=== PATIENT | male | born 1970 | race Caucasian/White ===

== ENCOUNTER 2021-05-21 15:54 | Emergency (ER) | payer OTHER, SELFPAY ==
--- NOTE | 2021-05-21 16:07 | ED.EAR ---
HPI - Ear Problem General Chief complaint: Ear Stated complaint: LT ear pain and trouble hearing Time Seen by Provider: 05/21/21 15:56 Source: patient Mode of arrival: ambulatory Limitations: no limitations History of Present Illness HPI Narrative: 50-year-old man comes in today complaining of left ear pain and loss of hearing for last 2 days. Patient states that he has had no injury. He uses Q-tips to clear his ear wax. He has had no dizziness, nausea, vomiting or fever. MD Complaint: ear pain and decreased hearing Location: left ear Duration: constant Severity: severe Relieving factors: nothing Exacerbating factors: other ( Swallowing) Discharge from ear: Reports no Associated symptoms ear: decreased hearing Treatment prior to arrival: attempt at ear wax removal and other ( hydrogen peroxide) Related Data Home Medications Medication Instructions Recorded Confirmed No Home Medications 05/21/21 05/21/21 Allergies Allergy/AdvReac Type Severity Reaction Status Date / Time Penicillins Allergy Severe Hives Verified 05/21/21 16:11 Review of Systems Review of Systems: All systems reviewed & are unremarkable except as noted in HPI and below Constitutional: Constitutional: Denies chills and Denies fever(s) Eyes: Eyes: Denies change in vision and Denies photophobia ENT: Denies nasal congestion and Denies sore throat Cardiovascular: Cardiovascular: Denies chest pain and Denies radiating jaw, neck or arm pain Respiratory: Respiratory: Denies cough and Denies dyspnea Gastrointestinal: Gastrointestinal: Denies nausea and Denies vomiting Integumentary/Breasts: Skin/Breast: Denies pruritus, Denies erythema and Denies rash Hematologic/Lymphatic: Hematologic/Lymphatic: Denies easy bleeding and Denies easy bruising [facility] Surgical History Surgical History (Updated 05/21/21 @ 16:11 by Scott Drummond MD) H/O cardiac radiofrequency ablation H/O foot surgery Social History Social History (Updated 05/21/21 @ 16:11 by Scott Drummond MD) Smoking status: Current every day smoker Alcohol intake: former Substance use: never Living arrangements: with family Exam Const: General: healthy appearing and alert Orientation/consciousness: patient oriented x3 Limitations: no limitations Other: [id number] acute distress. HENMT: Head: normal to inspection Ears: external ears normal and Abnormal EAC present cerumen impaction on the left Face and sinus: normal facial exam Mouth: Yes moist mucous membranes Throat: posterior oropharynx normal Eyes: Conjunctivae: conjunctivae normal Pupils: Equal, round and reactive pupils present EOM: EOMs intact bilaterally Resp: Effort & Inspection: normal respiratory effort and not labored Auscultation: clear to auscultation bilaterally, no rales, no rhonchi and no wheezes Cardio: Rate: regular rate Rhythm: regular rhythm Heart sounds: no murmurs Skin: General skin exam: normal color, no jaundice and no pallor Rashes: no rashes Neuro: General: patient oriented x3, moves all extremities, no focal motor deficits and CN's II-XI intact bilaterally Speech: normal speech Gait exam (Neuro): Normal gait present Extrem: General: normal to inspection and no clubbing, cyanosis or edema Psych: Appearance: grossly normal and well kempt Mental Status: mental status grossly normal Affect: normal affect Thought content: Yes Normal thought content present Course Vital Signs Vital signs: Vital Signs Temperature 35.7 C L 05/21/21 16:08 Pulse Rate 86 05/21/21 16:08 Respiratory Rate 16 05/21/21 16:08 Blood Pressure 186/101 H 05/21/21 16:08 Pulse Oximetry 96 05/21/21 16:08 Temperature 35.7 C L 05/21/21 16:08 Pulse Rate 86 05/21/21 16:08 Respiratory Rate 16 05/21/21 16:08 Blood Pressure 186/101 H 05/21/21 16:08 Pulse Oximetry 96 05/21/21 16:08 Medical Decision Making Vital Signs Vital Signs: Vital Signs Temperature 35.7 C L
[2021-05-21 16:08] VITALS: BP 186/101; PULSE 86; RESP 16; TEMP 35.7; O2SAT 96
[2021-05-21 16:57] VITALS: BP 176/112; PULSE 100; RESP 16; TEMP 36.4; O2SAT 96
--- NOTE | 2021-05-21 17:00 | PC.NURSE ---
rn irrigated bilateral ears with warm water per erp request. large amounts of earwax cleared from bilateral ear canals. tm is now visable in both ears. patient reports pain is elevated following irrigation. erp is notified to reassess patient's ears at this time.
== END 2021-05-21 17:01 | disposition home or self-care (01) ==
PROVIDERS: Emergency Provider Emergency Medicine
DX: H61.22 Impacted cerumen, left ear (principal)
CPT/HCPCS: 69209; 99282

== ENCOUNTER 2021-10-23 00:50 | Emergency (ER) | payer OTHER, SELFPAY ==
--- NOTE | ~2021-10-23 | XR_ITS ---
EXAMINATION: XR chest 1V portable DATE: 10/23/2021 01:25 INDICATION: Chest pain. TECHNIQUE: A single frontal view of the chest was obtained on 2 radiographs. COMPARISON: None. FINDINGS: A calcified right lung nodule is consistent with old granulomatous disease. There is blunti ng of left lateral costophrenic angle. There is mild atelectasis in left midlung zone. No pneumothora x. The heart size is normal. IMPRESSION: 1. Blunting of left lateral costophrenic angle, which may be scarring and/or a small left pleural eff usion. 2. Mild atelectasis in left midlung zone. Reviewed, dictated and finalized at location A. IMPRESSION: 1. Blunting of left lateral costophrenic angle, which may be scarring and/or a small left pleural effusion. 2. Mild atelectasis in left midlung zone.
--- NOTE | 2021-10-23 01:10 | ECG_ITS ---
Measurements Intervals [place] Rate: 103 P: 37 IN: 183 QRS: 33 QRSD: 90 T: 53 QT: 342 QTc: 448 Interpretive Statements SINUS TACHYCARDIA BORDERLINE R WAVE PROGRESSION, ANTERIOR LEADS BASELINE ARTIFACT- I, II, AVR, AVF BORDERLINE ECG Electronically Signed On 10-23-2021 6:33:59 CDT by Arthur Larsen D.O.
[2021-10-23 01:24] VITALS: BP 134/81; PULSE 98; RESP 21; TEMP 36.6; O2SAT 98
[2021-10-23 01:25] LABS: Basophils Absolute Auto 0.05 K/mm3 (0.00-0.10); Basophils Percent Auto 0.7 % (0.0-1.0); Eosinophils Absolute Auto 0.25 K/mm3 (0.02-0.50); Eosinophils Percent Auto 3.6 % (1.0-6.0); Hematocrit 45.3 % (40.0-54.0); Immature Granulocyte Absolute 0.03 K/mm3 (0.00-0.00); Immature Granulocyte Percent A 0.4 % (0.0-0.0); Lymphocytes Percent Auto 40.5 % (18.0-42.0); Mean Corpuscular HGB Conc 33.1 g/dL (32.0-36.0); Mean Corpuscular Hemoglobin 30.2 pg (27.0-31.0); Mean Corpuscular Volume 91.1 fL (78.0-102.0); Mean Platelet Volume 9.4 fl (8.7-11.0); Monocytes Absolute Auto 0.67 K/mm3 (0.10-0.90); Monocytes Percent Auto 9.7 % (2.0-11.0); Neutrophils Absolute Auto 3.1 K/mm3 (1.7-7.2); Neutrophils Percent Auto 45.1 % (50.0-70.0); Platelet Count Result 304 K/mm3 (150-420); Red Blood Count 4.97 M/mm3 (4.70-6.10); Red Cell Distribution Width 13.9 % (11.6-14.4); White Blood Count 6.9 K/mm3 (4.8-10.8)
[2021-10-23 01:43] LABS: Alanine Aminotransferase 88 U/L (16-63); Albumin Level 3.4 g/dL (3.4-5.0); Alkaline Phosphatase 75 U/L (46-116); Anion Gap 7 mmol/L (8-16); Aspartate Amino Transferase 80 U/L (15-37); Bilirubin,Total 0.6 mg/dL (0.00-1.00); Blood Urea Nitrogen 23 mg/dL (7-18); Calcium 9.1 mg/dL (8.5-10.1); Carbon Dioxide 30 mmol/L (21-32); Chloride 100 mmol/L (98-108); Estimated CRCL calculation 66 ml/min; Estimated Glomerular Filt Rate 42; Glucose 117 mg/dL (70-99); Osmolality Calculated 288 mOsm/kg (285-295); Potassium 3.9 mmol/L (3.5-5.1); Sodium 137 mmol/L (136-145); Total Protein 7.4 g/dL (6.4-8.2); Troponin I 15.9 ng/L (0.00-60.4)
[2021-10-23 01:46] LABS: Lactic Acid Reflex 0.8 mmol/L (0.4-2.0)
[2021-10-23] MEDS: SODIUM CHLORIDE 0.9% IV 1,000 ML 999 ML IV CONT (01:49)
[2021-10-23 02:23] VITALS: BP 133/78; PULSE 93; RESP 17; O2SAT 98
--- NOTE | 2021-10-23 02:28 | ED.GENADULT ---
[facility] - General Adult General Chief complaint: Unspecified Stated complaint: Body Aches Time Seen by Provider: 10/23/21 00:54 Source: patient and RN notes reviewed Mode of arrival: ambulatory Limitations: no limitations History of Present Illness complaint: mild persistent bodyaches Onset (ago): hour(s) (12) Radiation: non-radiation Severity: moderate Severity scale (1-10): 8 Quality: aching Relieving factors: none Exacerbating factors: none Associated symptoms: nausea/vomiting Treatments prior to arrival: none Related Data Allergies Allergy/AdvReac Type Severity Reaction Status Date / Time Penicillins Allergy Severe Hives Verified 10/23/21 00:55 Review of Systems Review of Systems: All systems reviewed & are unremarkable except as noted in HPI and below Constitutional: Constitutional: Reports no additional constitutional complaints Eyes: Eyes: Reports no additional eye complaints ENT: Reports system reviewed and no additional complaints, except as documented Cardiovascular: Cardiovascular: Reports no additional cardiovascular complaints Respiratory: Respiratory: Reports no additional respiratory complaints Gastrointestinal: Gastrointestinal: Reports no additional gastrointestinal complaints Musculoskeletal: Musculoskeletal: Reports no additional musculoskeletal complaints Integumentary/Breasts: Skin/Breast: Reports system reviewed and no additional complaints, except as docu Neurologic: Reports system reviewed and no additional complaints, except as documented Psychiatric: Psychiatric: Reports no additional psychiatric complaints Endocrine: Endocrine: Reports no additional endocrine complaints Hematologic/Lymphatic: Hematologic/Lymphatic: Reports no additional hematologic/lymphatic complaints Allergic/Immunologic: Allergic/Immunologic: Reports no additional allergic/immunologic complaints [facility] Past Medical History Medical History (Updated 11/12/21 @ 23:39 by Francoise Douglas MD) Heat cramp, initial encounter Muscle cramps Surgical History Surgical History H/O cardiac radiofrequency ablation H/O foot surgery Social History Social History Smoking status: Current every day smoker Alcohol intake: former Substance use: never Exam Const: General: healthy appearing and no acute distress Nutritional Appearance: well nourished Orientation/consciousness: patient oriented x3 Limitations: no limitations HENMT: Head: normal to inspection Ears: external ears normal, TM's normal bilaterally and EAC's normal General nose exam: Normal external nose present and Normal nares present Face and sinus: normal facial exam and sinuses nontender Mouth: Yes Normal oral and palatal mucosa present and Yes moist mucous membranes Teeth and gingiva: dentition normal Throat: posterior oropharynx normal Eyes: Conjunctivae: conjunctivae normal Pupils: Equal, round and reactive pupils present EOM: EOMs intact bilaterally Neck: Neck: normal visual inspection, no lymphadenopathy and no meningeal signs Chest: Chest palpation & inspection: normal inspection of the chest Resp: Effort & Inspection: normal respiratory effort Auscultation: clear to auscultation bilaterally Cardio: Rate: regular rate Rhythm: regular rhythm GI: GI Palp: Yes Soft to palpation and No Tenderness to palpation present (GI) Auscultation: normal bowel sounds : General: Yes bladder normal to palpation and Yes no CVA tenderness Back/Spine/Pelvis: Back: no CVA tenderness Skin: General skin exam: normal color Rashes: no rashes Wounds: no wounds Neuro: General: patient oriented x3, moves all extremities, no meningeal signs, no focal motor deficits and CN's II-XI intact bilaterally Cranial nerves: Yes Equal, round and reactive pupils present and Yes Nystagmus not present Speech: normal speech Gait exam (Neuro): Norm
[2021-10-23 02:46] VITALS: BP 133/90; PULSE 90; RESP 16; TEMP 36.2; O2SAT 98
== END 2021-10-23 02:48 | disposition home or self-care (01) ==
PROVIDERS: Emergency Provider Emergency Medicine; PCP Nurse Practitioner Family
DX: R25.2 Cramp and spasm (principal); T67.2XXA Heat cramp, initial encounter
CPT/HCPCS: 36415; 71045; 80053; 83605; 83735; 84484; 85025; 93005; 96360; 99284; J7030

== ENCOUNTER 2022-04-19 18:36 | Emergency (ER) | payer OTHER, SELFPAY ==
[2022-04-19 18:39] VITALS: BP 161/82; PULSE 118; RESP 16; TEMP 37.4; O2SAT 97
--- NOTE | 2022-04-19 18:58 | ED.URI ---
HPI - URI/Sore Throat General Chief Complaint: Ear Stated Complaint: ear, throat pain, fever Time Seen by Provider: 04/19/22 18:48 Source: patient and RN notes reviewed Mode of arrival: ambulatory Limitations: no limitations History of Present Illness MD elicited complaint: fever, cough, sore throat and nasal congestion Onset (ago): day(s) (3) Consistency: constant Severity: moderate Description of mucous: clear Able to tolerate fluids by mouth: Yes Exacerbating factors: other ( Coughing) Relieving factors: NSAID Associated symptoms: fever, chills, myalgias, headache, rhinorrhea, nasal congestion, sore throat, cough, vomiting and diarrhea Treatments prior to arrival: ibuprofen Related Data Allergies Allergy/AdvReac Type Severity Reaction Status Date / Time Penicillins Allergy Severe Hives Verified 04/19/22 18:43 Review of Systems Review of Systems: All systems reviewed & are unremarkable except as noted in HPI and below PMFSH Past Medical History Medical History (Updated 04/19/22 @ 20:05 by Gumaro Bal MD) Heat cramp, initial encounter Hypertension Muscle cramps Surgical History Surgical History (Updated 04/19/22 @ 19:02 by Gumaro Bal MD) H/O cardiac radiofrequency ablation H/O foot surgery Large bowel obstruction had surgical decompression Social History Social History Smoking status: Current every day smoker Alcohol intake: former Substance use: never Exam Const: General: healthy appearing, no acute distress and alert Nutritional Appearance: well nourished and obese morbidly obese Limitations: no limitations HENMT: Head: normal to inspection Ears: external ears normal and TM's normal bilaterally Face/Nose/Sinus: Normal external nose present Face and sinus: normal facial exam Mouth: Yes moist mucous membranes Throat: uvula midline and posterior oropharynx abnormal edema and erythema Eyes: Conjunctivae: conjunctivae normal Pupils: Equal, round and reactive pupils present EOM: EOMs intact bilaterally Neck: Neck: normal visual inspection and no lymphadenopathy Resp: Effort & Inspection: normal respiratory effort Auscultation: clear to auscultation bilaterally Cardio: Rate: tachycardic Rhythm: regular rhythm GI: GI Palp: Yes Soft to palpation and No Tenderness to palpation present (GI) Auscultation: normal bowel sounds Back/Spine/Pelvis: Cervical Spine: cervical ROM normal Thoracic/Lumbar Spine: thoraco-lumbar ROM normal Skin: General skin exam: normal color Rashes: no rashes Neuro: General: patient oriented x3, moves all extremities, no focal motor deficits and CN's II-XI intact bilaterally Speech: normal speech Gait exam (Neuro): Normal gait present Extrem: General: normal to inspection and no clubbing, cyanosis or edema Psych: Mental Status: mental status grossly normal Affect: normal affect Attitude: cooperative Course Vital Signs Vital signs: Vital Signs Temperature 37.4 C 04/19/22 18:39 Pulse Rate 118 H 04/19/22 18:39 Respiratory Rate 16 04/19/22 18:39 Blood Pressure 161/82 H 04/19/22 18:39 Pulse Oximetry 97 04/19/22 18:39 Oxygen Delivery Room Air 04/19/22 18:39 Temperature 36.6 C 04/19/22 20:07 Pulse Rate 98 04/19/22 20:07 Respiratory Rate 20 04/19/22 20:07 Blood Pressure 138/90 04/19/22 20:07 Pulse Oximetry 95 04/19/22 20:07 Oxygen Delivery Room Air 04/19/22 20:07 MDM - URI/Sore Throat Differential Diagnosis Differential diagnosis: Likely upper respiratory infection, sinusitis, viral infection, bronchitis, influenza, pharyngitis and other (COVID) Lab Data Attestation: I reviewed the patient's lab results. Labs: Lab Results 04/19/22 04/19/22 Range/Units 18:43 18:43 Influenza A (RT-PCR) Negative (Negative) Influenza B (RT-PCR) Negative (Negative) SARS-CoV-2 RNA (RT-PCR) Negative (Negative) Group A Strep (PCR) Not detected (Ne
[2022-04-19 19:30] VITALS: BP 140/90; PULSE 100; RESP 20; O2SAT 95
[2022-04-19 19:32] LABS: Strep Group A RT-PCR Not Detected (Negative)
[2022-04-19 19:39] LABS: Influenza A QL RT-PCR Negative (Negative); Influenza B QL RT-PCR Negative (Negative); SARS-CoV-2 RNA PCR Negative (Negative)
[2022-04-19 20:07] VITALS: BP 138/90; PULSE 98; RESP 20; TEMP 36.6; O2SAT 95
== END 2022-04-19 20:08 | disposition home or self-care (01) ==
PROVIDERS: Emergency Provider Emergency Medicine; PCP Nurse Practitioner Family
DX: J06.9 Acute upper respiratory infection, unspecified (principal); F17.200 Nicotine dependence, unspecified, uncomplicated; Z20.822 Contact with and (suspected) exposure to COVID-19
CPT/HCPCS: 87502; 87651; 99283; U0003; U0005

== ENCOUNTER 2022-11-07 11:47 | Outpatient (CLI) | payer BC, SELFPAY ==
[2022-11-07 12:14] LABS: Hemoglobin A1C 6.7 % (<5.7)
[2022-11-07 13:01] LABS: Prostate Specific Antigen 1.8 ng/mL (< OR = 4.0)
== END 2022-11-07 11:48 | disposition home or self-care (01) ==
LOC: CHSLAB 11:49
PROVIDERS: PCP Family Medicine; Visit Provider Family Medicine
DX: E11.9 Type 2 diabetes mellitus without complications (principal); R35.1 Nocturia
CPT/HCPCS: 36415; 83036; 84153; G0103

== ENCOUNTER 2022-12-02 18:01 | Emergency (ER) | payer BC, SELFPAY ==
[2022-12-02 18:01] VITALS: PULSE 98; RESP 98; TEMP 36.4; O2SAT 100
--- NOTE | 2022-12-02 18:07 | ED.GENADULT ---
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 He were care yesterday as well and were experiencing he weight. Today the heat index was 122?. He began having cramps this afternoon felt like he was lungs were cramping it could take a deep breath at times. Says all of his muscles are cramping. He says he has been drinking water but not using any other electrolyte replacement. complaint: Widespread muscle cramping Onset (ago): hour(s) (4-5) Severity: severe Quality: stabbing and aching Pain Consistency: intermittent Relieving factors: none Exacerbating factors: movement Associated symptoms: denies other symptoms Treatments prior to arrival: none Related Data Allergies Allergy/AdvReac Type Severity Reaction Status Date / Time Penicillins Allergy Severe Hives Verified 12/02/22 18:07 Review of Systems Review of Systems: All systems reviewed & are unremarkable except as noted in HPI and below Constitutional: Constitutional: Denies excessive sweating Cardiovascular: Cardiovascular: Denies chest pain Gastrointestinal: Gastrointestinal: Denies nausea and Denies vomiting PMFSH Past Medical History Medical History Heat cramp, initial encounter Hypertension Muscle cramps Surgical History Surgical History H/O cardiac radiofrequency ablation H/O foot surgery Large bowel obstruction had surgical decompression Social History Social History Smoking status: Current every day smoker Alcohol intake: former Substance use: never Living arrangements: with family Exam Const: General: no acute distress, alert and ill appearing acutely Nutritional Appearance: well nourished and obese Orientation/consciousness: patient oriented x3 Limitations: no limitations HENMT: Head: normal to inspection Ears: external ears normal Face/Nose/Sinus: Normal external nose present Face and sinus: normal facial exam Mouth: Yes moist mucous membranes Eyes: Conjunctivae: conjunctivae normal Pupils: Equal, round and reactive pupils present EOM: EOMs intact bilaterally Neck: Neck: normal visual inspection Resp: Effort & Inspection: normal respiratory effort Auscultation: clear to auscultation bilaterally Cardio: Rate: regular rate Rhythm: regular rhythm GI: GI Palp: Yes Soft to palpation and No Tenderness to palpation present (GI) Auscultation: normal bowel sounds Back/Spine/Pelvis: Cervical Spine: cervical ROM normal Thoracic/Lumbar Spine: thoraco-lumbar ROM normal Skin: General skin exam: normal color Rashes: no rashes Neuro: General: patient oriented x3, moves all extremities, no focal motor deficits and CN's II-XI intact bilaterally Speech: normal speech Gait exam (Neuro): Normal gait present Extrem: General: normal to inspection and no clubbing, cyanosis or edema Psych: Mental Status: mental status grossly normal Affect: Anxious affect present Attitude: cooperative Course Course Emergency Course: patient given 2 L normal saline and feels much better. He is advised to use electrolyte replacement when he is working out heat. Lactic acidosis is due to his heat exhaustion. Vital Signs Vital signs: Vital Signs Temperature 36.4 C 12/02/22 18:01 Pulse Rate 98 12/02/22 18:01 Respiratory Rate 98 H 12/02/22 18:01 Pulse Oximetry 100 12/02/22 18:01 Oxygen Delivery Room Air 12/02/22 18:01 Temperature 37.1 C 12/02/22 19:40 Pulse Rate 78 12/02/22 19:40 Respiratory Rate 20 12/02/22 19:40 Blood Pressure 128/78 12/02/22 19:40 Pulse
[2022-12-02] MEDS: SODIUM CHLORIDE 0.9% IV 1,000 ML 999 ML IV CONT ×2 (18:13→18:55)
[2022-12-02 18:21] VITALS: BP 118/78
[2022-12-02 18:32] LABS: Basophils Absolute Auto 0.03 K/mm3 (0.00-0.10); Basophils Percent Auto 0.3 % (0.0-1.0); Eosinophils Absolute Auto 0.29 K/mm3 (0.02-0.50); Eosinophils Percent Auto 2.7 % (1.0-6.0); Hematocrit 48.6 % (40.0-54.0); Hemoglobin 15.9 g/dL (14.0-18.0); Immature Granulocyte Absolute 0.05 K/mm3 (0.00-0.00); Immature Granulocyte Percent A 0.5 % (0.0-0.0); Lymphocytes Absolute Auto 2.09 K/mm3 (1.10-4.50); Lymphocytes Percent Auto 19.8 % (18.0-42.0); Mean Corpuscular HGB Conc 32.7 g/dL (32.0-36.0); Mean Corpuscular Hemoglobin 30.3 pg (27.0-31.0); Mean Corpuscular Volume 92.6 fL (78.0-102.0); Mean Platelet Volume 9.7 fl (8.7-11.0); Monocytes Percent Auto 7.6 % (2.0-11.0); Neutrophils Absolute Auto 7.3 K/mm3 (1.7-7.2); Neutrophils Percent Auto 69.1 % (50.0-70.0); Platelet Count Result 344 K/mm3 (150-420); Red Blood Count 5.25 M/mm3 (4.70-6.10); Red Cell Distribution Width 13.4 % (11.6-14.4); White Blood Count 10.6 K/mm3 (4.8-10.8)
[2022-12-02 18:49] VITALS: BP 129/80; PULSE 94; RESP 18; O2SAT 98
--- NOTE | 2022-12-02 18:51 | PC.NURSE ---
PT REPORTS CRAMPING HAS IMPROVED. IVF INFUSING WITHOUT DIFFICULTY. WILL CONTINUE TO MONITOR.
[2022-12-02 19:05] LABS: Alanine Aminotransferase 85 U/L (16-63); Albumin Level 3.6 g/dL (3.4-5.0); Alkaline Phosphatase 81 U/L (46-116); Anion Gap 10 mmol/L (8-16); Aspartate Amino Transferase 75 U/L (15-37); Bilirubin,Total 0.5 mg/dL (0.00-1.00); Blood Urea Nitrogen 20 mg/dL (7-18); Calcium 8.9 mg/dL (8.5-10.1); Carbon Dioxide 28 mmol/L (21-32); Chloride 99 mmol/L (98-108); Estimated CRCL calculation 49 ml/min; Estimated Glomerular Filt Rate 30; Glucose 92 mg/dL (70-99); Osmolality Calculated 286 mOsm/kg (285-295); Potassium 3.6 mmol/L (3.5-5.1); Sodium 137 mmol/L (136-145); Total Protein 8.2 g/dL (6.4-8.2)
[2022-12-02 19:06] LABS: CRP < 0.5 mg/dL (0.0-0.9)
[2022-12-02 19:27] VITALS: BP 127/81; PULSE 95; RESP 20; O2SAT 98
[2022-12-02 19:40] VITALS: BP 128/78; PULSE 78; RESP 20; TEMP 37.1; O2SAT 96
[2022-12-02 21:28] LABS: Reflex Lactic Acid Yes or No Add Lactic
== END 2022-12-02 19:47 | disposition home or self-care (01) ==
PROVIDERS: Emergency Provider Emergency Medicine; PCP Family Medicine
DX: T67.5XXA Heat exhaustion, unspecified, initial encounter (principal); I10 Essential (primary) hypertension; F17.200 Nicotine dependence, unspecified, uncomplicated
CPT/HCPCS: 36415; 80053; 83605; 83735; 85025; 86140; 96360; 99283; J7030

== ENCOUNTER 2023-03-12 12:49 | Emergency (ER) | payer BC, SELFPAY ==
[2023-03-12 12:49] VITALS: BP 155/106; PULSE 111; RESP 18; O2SAT 96
--- NOTE | 2023-03-12 12:55 | ECG_ITS ---
Measurements Intervals [place] Rate: 104 P: 17 VT: 174 QRS: 21 QRSD: 90 T: 64 QT: 340 QTc: 447 Interpretive Statements SINUS TACHYCARDIA CANNOT RULE OUT SEPTAL INFARCT, AGE INDETERMINATE MINIMAL Q WAVES- INFERIOR LEADS BASELINE ARTIFACT- I, II, III, V4 ABNORMAL ECG COMPARED TO ECG 10/23/2021 01:29:59 MYOCARDIAL INFARCT FINDING NOW PRESENT Electronically Signed On 03-12-2023 14:32:54 ARCH SUPPORT TECHNICIAN by Arthur Larsen D.O.
[2023-03-12 13:00] VITALS: BP 157/97; PULSE 99; RESP 13; O2SAT 99
[2023-03-12 13:08] VITALS: TEMP 36.9
--- NOTE | 2023-03-12 13:08 | ED.CHESTPAIN ---
HPI - Chest Pain General Chief Complaint: Chest Pain Stated Complaint: chest pain Time Seen by Provider: 03/12/23 12:54 Source: patient Mode of arrival: ambulatory Limitations: no limitations History of Present Illness HPI narrative: this is a 49-year-old male that presents with chest pressure tightness substernal radiating to his left arm with diaphoresis and shortness of breath started [id number] ago, patient with history of hypertension and diabetes. Currently patient is diaphoretic with no cough no congestion no fever chills has a history of heart ablation with no history of heart disease, the patient is a smoker. complaint: chest pain Onset (ago): minute(s) Timing of current episode: constant Prior episodes: No Onset: during rest Pain location: substernal Pain radiation: left arm Severity: severe Pain scale (0-10): 10 Quality: heaviness Related Data Allergies Allergy/AdvReac Type Severity Reaction Status Date / Time Penicillins Allergy Severe Hives Verified 03/12/23 13:00 Review of Systems Review of Systems: All systems reviewed & are unremarkable except as noted in HPI and below PMFSH Past Medical History Medical History Heat cramp, initial encounter Hypertension Muscle cramps Surgical History Surgical History H/O cardiac radiofrequency ablation H/O foot surgery Large bowel obstruction had surgical decompression Social History Social History Smoking status: Current every day smoker Alcohol intake: former Substance use: never Living arrangements: with family Exam Const: General: no acute distress, diaphoretic and ill appearing Nutritional Appearance: obese Orientation/consciousness: patient oriented x3 Limitations: no limitations Eyes: Conjunctivae: conjunctivae normal Pupils: Equal, round and reactive pupils present EOM: EOMs intact bilaterally Neck: Neck: normal visual inspection Chest: Chest palpation & inspection: normal inspection of the chest Resp: Effort & Inspection: normal respiratory effort Auscultation: clear to auscultation bilaterally Cardio: Rate: tachycardic Rhythm: regular rhythm GI: GI Palp: Yes Soft to palpation Skin: General skin exam: normal color Rashes: no rashes Neuro: General: moves all extremities Extrem: General: normal to inspection Course Course Emergency Course: 52-year-old male with chest pressure that he rates 10/10 left substernal chest area radiating into his left arm diaphoretic with shortness of breath, blood pressure 155/106, EKG showed no acute ST or T changes, spoke to Cardiology at [facility] that requested patient be transferred directly to [facility] ER for further evaluation. Patient receive a full dose aspirin and sublingual nitro prior to leaving our ER. Vital Signs Vital signs: Vital Signs Pulse Rate 111 H 03/12/23 12:49 Respiratory Rate 18 03/12/23 12:49 Blood Pressure 155/106 H 03/12/23 12:49 Pulse Oximetry 96 03/12/23 12:49 Oxygen Delivery Room Air 03/12/23 12:49 Pulse Rate 111 H 03/12/23 12:49 Respiratory Rate 18 03/12/23 12:49 Blood Pressure 155/106 H 03/12/23 12:49 Pulse Oximetry 96 03/12/23 12:49 Oxygen Delivery Room Air 03/12/23 12:49 Critical Care Time Critical Care Time Critical Care Time: No Discharge Plan Discharge Clinical Impression: Chest pain Patient Disposition: Home, Self-Care Condition: Stable Instructions: Antibiotic Form Prescriptions: No Action lisinopril-hydrochlorothiazide 20-25 mg tablet 1 tablet PO DAILY Qty: 90 3RF metformin 500 mg tablet 500 mg PO BID Qty: 180 0RF tamsulosin [Flomax] 0.4 mg capsule 0.4 mg PO DAILY Qty: 90 0RF Follow-up/Referrals: Chester Sanchez DO [Primary Care Provider] - Time of Disposition: 13:13
[2023-03-12] MEDS: ASPIRIN 81 MG CHEWABLE TABLET 324 MG PO (13:13)
[2023-03-12] MEDS: NITROGLYCERIN SL 0.4 MG TABLET SUBLINGUAL (13:14)
[2023-03-12 13:15] VITALS: BP 166/106; PULSE 101; RESP 15; O2SAT 99
[2023-03-12 13:18] LABS: Basophils Absolute Auto 0.05 K/mm3 (0.00-0.10); Basophils Percent Auto 0.7 % (0.0-1.0); Eosinophils Absolute Auto 0.21 K/mm3 (0.02-0.50); Eosinophils Percent Auto 2.8 % (1.0-6.0); Hematocrit 49.3 % (40.0-54.0); Hemoglobin 16.1 g/dL (14.0-18.0); Immature Granulocyte Absolute 0.02 K/mm3 (0.00-0.00); Immature Granulocyte Percent A 0.3 % (0.0-0.0); Lymphocytes Absolute Auto 3.18 K/mm3 (1.10-4.50); Lymphocytes Percent Auto 42.4 % (18.0-42.0); Mean Corpuscular HGB Conc 32.7 g/dL (32.0-36.0); Mean Corpuscular Hemoglobin 29.9 pg (27.0-31.0); Mean Corpuscular Volume 91.5 fL (78.0-102.0); Mean Platelet Volume 9.6 fl (8.7-11.0); Monocytes Absolute Auto 0.53 K/mm3 (0.10-0.90); Monocytes Percent Auto 7.1 % (2.0-11.0); Neutrophils Absolute Auto 3.5 K/mm3 (1.7-7.2); Neutrophils Percent Auto 46.7 % (50.0-70.0); Platelet Count Result 346 K/mm3 (150-420); Red Blood Count 5.39 M/mm3 (4.70-6.10); Red Cell Distribution Width 13.2 % (11.6-14.4); White Blood Count 7.5 K/mm3 (4.8-10.8)
[2023-03-12 13:24] VITALS: BP 166/106; PULSE 101; RESP 15; TEMP 36.9; O2SAT 99
[2023-03-12 13:25] LABS: D Dimer 0.39 mg/L (0.19-0.50); Partial Thromboplastin Time 30.3 SEC (23.90-30.70)
[2023-03-12 13:29] LABS: Alanine Aminotransferase 77 U/L (16-63); Alkaline Phosphatase 77 U/L (46-116); Anion Gap 4 mmol/L (8-16); Aspartate Amino Transferase 77 U/L (15-37); Bilirubin,Total 0.6 mg/dL (0.00-1.00); Blood Urea Nitrogen 14 mg/dL (7-18); Calcium 8.7 mg/dL (8.5-10.1); Carbon Dioxide 35 mmol/L (21-32); Chloride 99 mmol/L (98-108); Estimated CRCL calculation 79 ml/min; Estimated Glomerular Filt Rate 58; Glucose 146 mg/dL (70-99); Lipase 102 U/L (16-77); NT Pro B Type Natriuretic Pept 61 pg/mL (0-125); Osmolality Calculated 289 mOsm/kg (285-295); Sodium 138 mmol/L (136-145); Total Protein 8.4 g/dL (6.4-8.2)
== END 2023-03-12 13:24 | disposition short-term general hospital (02) ==
PROVIDERS: Emergency Provider Emergency Medicine; PCP Family Medicine
DX: R07.9 Chest pain, unspecified (principal); R06.02 Shortness of breath; I10 Essential (primary) hypertension; F17.200 Nicotine dependence, unspecified, uncomplicated
CPT/HCPCS: 36415; 80053; 83690; 83880; 84484; 85025; 85380; 85610; 85730; 93005; 99284; A9270

== ENCOUNTER 2023-03-12 13:52 | Observation (INO) | payer BC, SELFPAY ==
[2023-03-12] VITALS (28 sets, daily range): BP systolic 125–166; BP diastolic 83–106; PULSE 91–113; RESP 12–26; TEMP 36.3–36.6; O2SAT 95–100; BMI 38.0
--- NOTE | ~2023-03-12 | CT_ITS ---
EXAMINATION: CTA chest abdomen DATE: 03/12/2023 14:33 INDICATION: Severe chest pain TECHNIQUE: Computed tomographic angiography (CTA) of the chest and abdomen was performed without and with 100 mL Omnipaque-350 intravenous contrast. The dose-length product was 1440.99 mGy-cm. Maximum i ntensity projection 3D-reconstructions of the aorta and other arteries were constructed by the techno logist on a separate workstation. COMPARISON: None. FINDINGS: CHEST CTA: No endobronchial lesions. There is dependent atelectasis. There is focal pleural thickening left lowe r thorax with adjacent parenchymal scarring. Calcified granuloma right lower lobe. No endobronchial l esion. There is mediastinal lymphadenopathy. There are calcified right hilar lymph nodes, consistent with chronic granulomatous infection. No evidence for aortic aneurysm or dissection. ABDOMEN CTA: The spleen, pancreas, adrenal glands are unremarkable. There are small subcentimeter hypovascular les ions of the kidneys, most likely benign cysts. Gallbladder is present. There is mild retroperitoneal and portacaval lymphadenopathy. No evidence for aortic aneurysm or dissection. The celiac axis, SMA, renal arteries and SHERRIE are patent. There is moderate-severe thoracic and lumbar spondylosis. Fatty in filtration of the liver. IMPRESSION: 1. Mediastinal and upper abdominal lymphadenopathy, nonspecific. These may be reactive, although othe r etiologies such as lymphoma and metastatic disease are considered. 2: No evidence for aortic aneurysm or dissection. 3: Focal left lower lobe pleural thickening with adjacent parenchymal scarring, possibly posttraumati c or postinfectious. Reviewed, dictated and finalized at location L. TY DIRECTOR WELFARE IMPRESSION: 1. Mediastinal and upper abdominal lymphadenopathy, nonspecific. These may be r eactive, although other etiologies such as lymphoma and metastatic disease are considered. 2: No evidence for aortic aneurysm or dissection. 3: Focal left lower lobe pleural thickening with adjacent parenchymal scarring, possibly posttraumatic or postinfectious.
[2023-03-12] MEDS: NITROGLYCERIN OINTMENT 1 INCH DOSE TRANSDERM (14:09)
--- NOTE | 2023-03-12 15:07 | ECG_ITS ---
Measurements Intervals [place] Rate: 99 P: -34 MI: 162 QRS: 39 QRSD: 89 T: 64 QT: 349 QTc: 450 Interpretive Statements SINUS RHYTHM DELAYED PRECORDIAL R/S TRANSITION MINIMAL Q WAVES- INFERIOR LEADS BORDERLINE ECG COMPARED TO ECG 03/12/2023 12:56:35 SINUS RHYTHM NOW PRESENT Electronically Signed On 03-12-2023 15:11:15 ASSISTANT PROFESSOR OF GEOGRAPHY by Arthur Larsen D.O.
--- NOTE | 2023-03-12 15:41 | ED.CHESTPAIN ---
HPI - Chest Pain General Chief Complaint: Chest Pain Stated Complaint: chest pressure Source: patient, RN notes reviewed and old records reviewed Mode of arrival: ambulatory Limitations: no limitations History of Present Illness HPI narrative: This is a 52 year old male with history of hypertension, DM who presents from [facility] for evaluation of chest pain. Patient states he developed substernal chest pain 1 hour ago. He describes pain as squeezing pain that makes it hard to take a breath. He states he was working and exerting himself. He reports having associated shortness of breath and diaphoresis. He went to ER at [facility] with 10/10 chest pain. He was given aspirin 324 mg PO and he reports SL nitro x 1. He states his pain improved now to 5/10. The EDP at [facility] paged patient as STEMI. Agricultural Produce Commission Agent, Dr. Hernandez, reviewed EKG and he states EKG did not show STEMI but requested patient be sent to [facility]. PATient reports history of cardiac ablation several years ago but denies any other cardiac disease. He reports strong family history of heart disease. Related Data Allergies Allergy/AdvReac Type Severity Reaction Status Date / Time Penicillins Allergy Severe Hives Verified 03/12/23 13:00 Review of Systems Constitutional: Constitutional: Denies weakness Cardiovascular: Cardiovascular: Reports chest pain, Denies syncope, Denies rapid heart rate, Denies irregular heart rhythm, Denies leg edema, Reports radiating jaw, neck or arm pain and Reports dyspnea Respiratory: Respiratory: Denies chest congestion, Denies hemoptysis, Denies excessive phlegm production and Reports dyspnea Gastrointestinal: Gastrointestinal: Denies abdominal pain, Denies hematochezia, Denies diarrhea and Denies vomiting Genitourinary: Genitourinary: Denies hematuria, Denies dysuria, Denies penile discharge and Denies testicular pain Musculoskeletal: Musculoskeletal: Denies joint swelling, Denies loss of height and Denies muscle weakness Neurologic: Denies syncope, Denies focal weakness and Denies weakness PMFSH Past Medical History Medical History Heat cramp, initial encounter Hypertension Muscle cramps Surgical History Surgical History H/O cardiac radiofrequency ablation H/O foot surgery Large bowel obstruction had surgical decompression Social History Social History Smoking status: Light tobacco smoker Tobacco type: cigarettes Alcohol intake: never Substance use: never Lack of Transportation: No Lack of Food: Never True Current Housing: I Have Housing Concerned About Future Housing: No Difficulty Paying Gas/Electric Bills: No Difficulty Paying for Meds: No Currently Unemployed: No Education: High School Diploma/GED Difficulty w/ Childcare or Family Care: No Living arrangements: with family Spiritual care concerns: No Exam Const: General: no acute distress and alert Nutritional Appearance: well nourished Orientation/consciousness: patient oriented x3 HENMT: Head: normal to inspection Eyes: EOM: EOMs intact bilaterally Chest: Chest palpation & inspection: normal inspection of the chest Resp: Effort & Inspection: normal respiratory effort Auscultation: clear to auscultation bilaterally Cardio: Rate: regular rate Rhythm: regular rhythm Heart sounds: no murmurs GI: GI Palp: Yes Soft to palpation, No Tenderness to palpation present (GI), No Guarding due to palpation present (GI) and No Rigid due to palpation Auscultation: normal bowel sounds Skin: General skin exam: normal color Rashes: no rashes Wounds: no wounds Neuro: General: patient oriented x3, moves all extremities and CN's II-XI intact bilaterally Extrem: General: normal to inspection Psych: Mental Status: mental status grossly normal Affect: normal affect Att
[2023-03-12 16:51] LABS: Troponin I < 0.012 ng/mL (0.000-0.034)
[2023-03-12 19:20] LABS: Troponin I < 0.012 ng/mL (0.000-0.034)
--- NOTE | 2023-03-12 20:42 | PM.IMHP ---
H&P: HPI History of Present Illness Date/Time: 03/12/23 20:42 Chief Complaint: chest pain Narrative: This is a 52-year-old male with past medical history significant for hypertension, tobacco dependence, type diabetes mellitus. Patient presents to the emergency room today due to sudden onset chest pain in the precordial area with radiation to the shoulder he was 10/10 in intensity patient went down on his knees but no loss of consciousness, no lightheadedness, had shortness of breath was able to drive himself to the hospital with a co-worker that follow close behind. Patient denies any fevers rigors chills cough sputum production nausea vomiting abdominal pain or diarrhea no PND no orthopnea has bilateral ankle swelling denies intermittent chest pain has been in his usual state of health up until this point preliminary workup has been essentially nonrevealing. Patient rule out for acute P with a CT angiogram. Patient is been placed in observation for further evaluation management and treatment. EXAMINATION: CTA chest abdomen DATE: 03/12/2023 14:33 INDICATION: Severe chest pain TECHNIQUE: Computed tomographic angiography (CTA) of the chest and abdomen was performed without and with 100 mL Omnipaque-350 intravenous contrast. The dose-length product was 1440.99 mGy-cm. Maximum intensity projection 3D-reconstructions of the aorta and other arteries were constructed by the technologist on a separate workstation. COMPARISON: None. FINDINGS: CHEST CTA: No endobronchial lesions. There is dependent atelectasis. There is focal pleural thickening left lower thorax with adjacent parenchymal scarring. Calcified granuloma right lower lobe. No endobronchial lesion. There is mediastinal lymphadenopathy. There are calcified right hilar lymph nodes, consistent with chronic granulomatous infection. No evidence for aortic aneurysm or dissection. ABDOMEN CTA: The spleen, pancreas, adrenal glands are unremarkable. There are small subcentimeter hypovascular lesions of the kidneys, most likely benign cysts. Gallbladder is present. There is mild retroperitoneal and portacaval lymphadenopathy. No evidence for aortic aneurysm or dissection. The celiac axis, SMA, renal arteries and SHERRIE are patent. There is moderate-severe thoracic and lumbar spondylosis. Fatty infiltration of the liver. IMPRESSION: 1. Mediastinal and upper abdominal lymphadenopathy, nonspecific. These may be reactive, although other etiologies such as lymphoma and metastatic disease are considered. 2:? No evidence for aortic aneurysm or dissection. 3: Focal left lower lobe pleural thickening with adjacent parenchymal scarring, possibly posttraumatic or postinfectious. Review of Systems Review of Systems: chest pain PMFSH Past Medical History Medical History Heat cramp, initial encounter Hypertension Muscle cramps Surgical History Surgical History H/O cardiac radiofrequency ablation H/O foot surgery Large bowel obstruction had surgical decompression Social History Social History Smoking status: Light tobacco smoker Tobacco type: cigarettes Alcohol intake: never Substance use: never Lack of Transportation: No Lack of Food: Never True Current Housing: I Have Housing Concerned About Future Housing: No Difficulty Paying Gas/Electric Bills: No Difficulty Paying for Meds: No Currently Unemployed: No Education: High School Diploma/GED Difficulty w/ Childcare or Family Care: No Living arrangements: with family Spiritual care concerns: No Meds Home Medications and Allergies Home Medications Medication Instructions Recorded Confirmed Type lisinopril 20 1 tablet PO DAILY #90 tabs 11/07/22 03/12/23 Rx mg-hydrochlorothiazide 25 mg tablet metformin 500 mg tablet 500 mg PO
[2023-03-12 20:47] LABS: Glucose Point of Care 171 mg/dl (65-105)
[2023-03-12] MEDS: NITROGLYCERIN SL 0.4 MG TABLET SUBLINGUAL (21:05)
[2023-03-12] MEDS: MORPHINE SULFATE (*CRX) 4 MG/ML INJ IV PUSH (21:07)
[2023-03-13] VITALS (15 sets, daily range): BP systolic 121–147; BP diastolic 57–102; PULSE 53–123; RESP 20–40; TEMP 36.1–36.7; O2SAT 96–100
--- NOTE | 2023-03-13 | ECHO_ITS ---
Patient Info Name: Aj Patino Age: 52 years : 1970 Gender: Male Ht: 72 in Wt: 280 lbs BSA: 2.59 m2 HR: 94 bpm BP: 121 / 70 mmHg Heart Rhythm: Sinus Rhythm Technical Quality: Fair Exam Date: 03/13/2023 11:44 AM Exam Location: Echo Lab Exam Room: 212 Patient Status: Inpatient Admit Date: 03/12/2023 Staff Ordering Physician: Sanjay Lyle MD Ladies Underwear Operator: Vickie Rodriguez RDCS Attending Provider: Glenis Moura MD Referring Physician: Dariela ETLLO; Exam Type: CA echo doppler color flow Study Info Indications - htn Complete two-dimensional, color flow and Doppler transthoracic echocardiogram is performed. Summary 1. Complete two-dimensional, color flow and Doppler transthoracic echocardiogram is performed. 2. Left ventricular hypertrophy with hyperdynamic systolic function and grade 2 diastolic noncompliance. 3. No valvular abnormality. Left Ventricle Left ventricular chamber dimension is normal. Left ventricular systolic function is hyperdynamic, estimated at >70%. There is mild concentric increased left ventricular wall thickness. The left ventricular diastolic function is grade II diastolic dysfunction. Right Ventricle Right ventricular chamber dimension is normal. Left Atria Left atrial chamber dimension is normal. Right Atria Right atrial chamber dimension is normal. Aortic Valve The aortic valve is normal. Pulmonic Valve The pulmonic valve is not well visualized. Mitral Valve The mitral valve has normal leaflets. Tricuspid Valve The tricuspid valve leaflets are normal. Pericardium/Pleural The pericardium appears normal. Aorta The aortic root size at the sinus of Valsalva is normal. Left Ventricular Outflow Tract Name Value Normal LVOT 2D LVOT Diameter 2.1 cm LVOT Doppler LVOT Peak Gradient 4 mmHg LVOT Mean Gradient 3 mmHg LVOT VTI 19 cm LVOT Stroke Volume 64 ml LVOT CO 16.6 l/min LVOT CI 6.4 l/min/m2 Pulmonic Valve Name Value Normal RVOT Doppler RVOT Peak Gradient 2 mmHg PV Doppler PV Peak Gradient 6 mmHg Mitral Valve Name Value Normal MV Doppler MV Decel [place] 345 cm/s2 MV PHT 67 ms MV Area (PHT) 3.3 cm2 4.0-5.0 MV Diastolic Function MV E Peak Velocity 80 cm/s
--- NOTE | 2023-03-13 00:03 | ECG_ITS ---
Measurements Intervals [place] Rate: 105 P: -3 MS: 171 QRS: 8 QRSD: 91 T: 36 QT: 322 QTc: 426 Interpretive Statements SINUS TACHYCARDIA EARLY REPOLARIZATION [ST ELEVATION WITH NORMALLY INFLECTED T WAVE] NORMAL eCG COMPARED TO ECG 03/12/2023 13:58:32 SINUS TACHYCARDIA NOW PRESENT Electronically Signed On 03-13-2023 13:20:09 CONCRETE SCULPTOR by Deangelo Kidd M.D.
[2023-03-13] MEDS: NITROGLYCERIN SL 0.4 MG TABLET SUBLINGUAL ×5 (00:07→02:43)
[2023-03-13] MEDS: MORPHINE SULFATE (*CRX) 4 MG/ML INJ IV PUSH ×2 (00:08→02:15)
[2023-03-13 01:06] LABS: Troponin I < 0.012 ng/mL (0.000-0.034)
--- NOTE | 2023-03-13 02:31 | ECG_ITS ---
Measurements Intervals [place] Rate: 102 P: 36 LA: 182 QRS: 12 QRSD: 93 T: 38 QT: 333 QTc: 435 Interpretive Statements SINUS TACHYCARDIA EARLY REPOLARIZATION [ST ELEVATION WITH NORMALLY INFLECTED T WAVE] NORMAL eCG COMPARED TO ECG 03/13/2023 00:03:01 NO SIGNIFICANT CHANGES Electronically Signed On 03-13-2023 13:21:28 PRIVATE INVESTIGATOR by Deangelo Kidd M.D.
[2023-03-13] MEDS: NITROGLYCERIN OINTMENT 1 INCH DOSE TRANSDERM ×2 (02:53→08:54)
[2023-03-13] MEDS: ENOXAPARIN 30 MG/0.3 ML SYRINGE SUB-Q (02:58)
[2023-03-13] MEDS: ENOXAPARIN 100 MG/ML SYRINGE SUB-Q (02:59)
--- NOTE | 2023-03-13 03:03 | PC.NURSE ---
0235: Patient called out report CP again. Patient stated the pain was worse than his last incident rating it at a 12/10. Patient was diaphoretic, pale and tachypneic. Patient was given three doses of nitro and morphine. MD Lyle to bedside. Orders placed. MD Santizo reviewed EKG.
--- NOTE | 2023-03-13 03:15 | ECG_ITS ---
Measurements Intervals [place] Rate: 100 P: 18 KS: 184 QRS: 25 QRSD: 93 T: 33 QT: 337 QTc: 436 Interpretive Statements SINUS TACHYCARDIA EARLY REPOLARIZATION [ST ELEVATION WITH NORMALLY INFLECTED T WAVE] NORMAL eCG INTERPRETATION BASED ON A DEFAULT AGE OF 40 YEARS COMPARED TO ECG 03/13/2023 02:33:44 NO SIGNIFICANT CHANGES Electronically Signed On 03-13-2023 13:22:31 AIR TRAFFIC CONTROL MANAGER by Deangelo Kidd M.D.
[2023-03-13 03:35] LABS: Troponin I < 0.012 ng/mL (0.000-0.034)
--- NOTE | 2023-03-13 04:30 | PC.NURSE ---
MD Cuadra informed of patient events. Orders obtained.
--- NOTE | 2023-03-13 04:53 | ECG_ITS ---
Measurements Intervals [place] Rate: 92 P: 43 MI: 180 QRS: 14 QRSD: 104 T: 43 QT: 351 QTc: 436 Interpretive Statements SINUS RHYTHM EARLY REPOLARIZATION [ST ELEVATION WITH NORMALLY INFLECTED T WAVE] COMPARED TO ECG 03/13/2023 03:14:27 SINUS RHYTHM NOW PRESENT Electronically Signed On 03-17-2023 13:21:09 HARDWARE INSTALLER by Dorys Reaves M.D.
[2023-03-13 04:56] LABS: Basophils Percent Auto 0.4 % (0.2-1.2); Eosinophils Absolute Auto 0.2 K/mm3 (0-0.3); Eosinophils Percent Auto 2.2 % (0-4.4); Hematocrit 43.1 % (42.0-52.0); Hemoglobin 13.9 g/dL (14.0-18.0); Immature Granulocyte Absolute 0.04 K/mm3 (0.00-0.031); Immature Granulocyte Percent A 0.4 % (0-0.5); Lymphocytes Absolute Auto 2.48 K/mm3 (0.9-3.2); Lymphocytes Percent Auto 27.9 % (18.3-44.2); Mean Corpuscular HGB Conc 32.3 g/dl (32-36); Mean Corpuscular Hemoglobin 29.6 pg (26-34); Mean Corpuscular Volume 91.9 fl (80-100); Mean Platelet Volume 9.6 fl (7.4-10.4); Monocytes Absolute Auto 0.6 K/mm3 (0.1-0.6); Monocytes Percent Auto 6.3 % (2.6-8.5); Neutrophils Absolute Auto 5.6 K/mm3 (1.3-6.7); Neutrophils Percent Auto 62.8 % (45.5-73.1); Platelet Count Result 255 k/mm3 (150-375); Red Blood Count 4.69 M/mm3 (4.6-6.20); Red Cell Distribution Width 13.5 % (11.5-14.5); White Blood Count 8.9 K/mm3 (4.5-10.0)
[2023-03-13 05:23] LABS: Troponin I < 0.012 ng/mL (0.000-0.034)
[2023-03-13 05:25] LABS: Alanine Aminotransferase 48 U/L (6-50); Albumin Level 3.6 g/dL (3.5-5.1); Alkaline Phosphatase 64 U/L (38-126); Anion Gap 9 mmol/L (8-16); Aspartate Amino Transferase 56 U/L (17-59); Bilirubin,Total 0.9 mg/dL (0.2-1.3); Blood Urea Nitrogen 15 mg/dL (9-20); Calcium 7.9 mg/dL (8.4-10.2); Carbon Dioxide 24 mmol/L (22-30); Chloride 99 mmol/L (98-107); Estimated CRCL calculation 115 ml/min; Estimated Glomerular Filt Rate > 60; Glucose 159 mg/dL (65-110); Potassium 3.9 mmol/L (3.4-5.0); Sodium 132 mmol/L (137-145)
[2023-03-13 08:00] LABS: Glucose Point of Care 116 mg/dl (65-105)
[2023-03-13] MEDS: lisinopriL 20 MG TABLET PO (08:54)
[2023-03-13] MEDS: ASPIRIN 81 MG CHEWABLE TABLET PO (08:54)
[2023-03-13] MEDS: TAMSULOSIN HCL 0.4 MG CAPSULE PO (08:54)
[2023-03-13] MEDS: hydroCHLOROthiazide 25 MG TABLET PO (08:55)
--- NOTE | 2023-03-13 09:34 | PM.CNCAR ---
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 In my opinion that his pain represents a strain of his chest wall. It is not typical of myocardial ischemia. Acute mi/ACS has been ruled out definitively by 5 normal electrocardiograms and for normal troponin samples. He still has some symptoms this morning when he takes a deep breath but otherwise is stable. He does not have to remain hospitalized for further cardiac evaluation in my opinion Deangelo Kidd MD [facility] History of Present Illness History of Present Illness Consult date/time: 03/13/23 09:34 Reason For Visit: chest pain Narrative: This is a pleasant 52-year-old man who apparently has hypertension and non insulin-dependent diabetes he was transferred here yesterday from [facility] for evaluation of chest pain. He works in a [employer] lady left [employer] up in [place] and was changing a tire on a truck suddenly noticed severe central chest pain that was a pain sharp in nature radiating up into the region of his left shoulder. He was taken to the emergency room where in fact apparently STEMI was declared and he was to be transferred here at [facility] for emergency angiography. When my partner we reviewed the electrocardiogram the STEMI activation was canceled. I am seeing him in consultation this morning. He still has some lingering pain which he says occurs when he tries to take a deep breath. He has never had any cardiac problems in the past. Yesterday he had 5 electrocardiograms done which were normal. He also had 4 levels of troponin sampled which are also normal. 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 He does not exercise with any structured fashion. He is and has a significant other with a 6-year-old daughter at this time. He is a smoker for many years. Review of Systems Constitutional: Constitutional: Reports no additional constitutional complaints Eyes: Eyes: Reports no additional eye complaints ENT: Reports system reviewed and no additional complaints, except as documented Cardiovascular: Cardiovascular: Reports as per HPI Respiratory: Respiratory: Reports no additional respiratory complaints Gastrointestinal: Gastrointestinal: Reports no additional gastrointestinal complaints Musculoskeletal: Musculoskeletal: Reports no additional musculoskeletal complaints Integumentary/Breasts: Skin/Breast: Reports system reviewed and no additional complaints, except as docu Endocrine: Endocrine: Reports no additional endocrine complaints Hematologic/Lymphatic: Hematologic/Lymphatic: Reports no additional hematologic/lymphatic complaints Allergic/Immunologic: Allergic/Immunologic: Reports no additional allergic/immunologic complaints PMFSH Past Medical History Medical History Heat cramp, initial encounter Hypertension Muscle cramps Surgical History Surgical History H/O cardiac radiofrequency ablation H/O foot surgery Large bowel obstruction had surgical decompression Social History Social History Smoking status: Light tobacco smoker Tobacco type: cigarettes Alcohol intake: never Substance use: never Lack of Transportation: No Lack of Food: Never True Current Housing: I Have Housing Concerned About Future Housing: No Difficulty Paying Gas/Electric Bills: No Difficulty Paying for Meds: No Currently Unemployed: No Education: High School Diploma/G
--- NOTE | 2023-03-13 10:36 | PM.IMPN ---
Progress Note: A&P Assessment and Plan (1) Chest pain: Qualifiers: Chest pain type: unspecified Qualified Code(s): R07.9 - Chest pain, unspecified Code(s): R07.9 - Chest pain, unspecified Status: Acute Assessment and Plan: . (2) Tobacco dependence: Code(s): F17.200 - Nicotine dependence, unspecified, uncomplicated Status: Acute (3) T2DM (type 2 diabetes mellitus): Code(s): E11.9 - Type 2 diabetes mellitus without complications Status: Acute (4) Hypertension: Code(s): I10 - Essential (primary) hypertension Status: Acute Plan 52-year-old male presented for chest pain. Associated shortness of breath with diaphoresis. Received aspirin 324 mg p.o. x1 with nitro. Pain improved with nitro. Initially STEMI alerted. EKG was reviewed by Cardiology and STEMI alert was aborted. History of cardiac ablation in the past. CTA mediastinal and upper abdominal lymphadenopathy could be reactive other etiology such as lymphoma and metastatic disease consider. No aortic aneurysm or dissection. Focal left lower lobe pleural thickening with adjacent parenchymal scarring. EKG with early repolarization. No dynamic changes on repeat EKGs. Troponin serial negative. Lipase mildly elevated at 102. BNP normal. Cardiology consulted. No further cardiac workup recommended. Echo has been ordered and will get echocardiogram. Hypertensive on admission. Will stop nitroglycerin patch. 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 Stress test has been discontinued as after discussion with the patient. Add PPI Abdominal lymphadenopathy: Could be reactive need follow-up CT as an outpatient basis to ensure resolution Hypertension on lisinopril and hydrochlorothiazide Diabetes on metformin at home Subjective Date/time seen: 03/13/23 10:36 Interval history: 52-year-old male presented for chest pain. Associated shortness of breath with diaphoresis. Received aspirin 324 mg p.o. x1 with nitro. Pain improved with nitro. Initially STEMI alerted. EKG was reviewed by Cardiology and STEMI alert was aborted. History of cardiac ablation in the past. CTA mediastinal and upper abdominal lymphadenopathy could be reactive other etiology such as lymphoma and metastatic disease consider. No aortic aneurysm or dissection. Focal left lower lobe pleural thickening with adjacent parenchymal scarring. EKG with early repolarization. No dynamic changes on repeat EKGs. Troponin serial negative. Lipase mildly elevated at 102. BNP normal. Cardiology consulted. No further cardiac workup recommended. Echo has been ordered and will get echocardiogram. Hypertensive on admission. Will stop nitroglycerin patch. 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 Stress test has been discontinued as after discussion with the patient. Add PPI Abdominal lymphadenopathy: Could be reactive need follow-up CT as an outpatient basis to ensure resolution Hypertension on lisinopril and hydrochlorothiazide Diabetes on metformin at home Review of Systems Review of Systems: All systems reviewed & are unremarkable except as noted in HPI and below Exam Narrative: GENERAL: The patient is well developed, not in acute distress HEENT: Nonicteric sclerae, PERRLA, EOMI. Oropharynx clear. Moist mucous membranes. Conjunctivae appear well perfused. CHEST: Chest wall is nontender. HEART: Regular rate and rhythm without murmur, rubs, or gallops LUNGS: Clear to auscultation bilaterally. no respiratory distress ABDOMEN: Soft, positive bowel sounds, non-tender, no organomegaly. SKIN: No rash, no excessive bruising, petechiae, or purpura. NEUROLOGIC: Cranial nerves II-XII intact, alert and oriented x 3, no gross motor deficits EXTREMITIES: no edema, cyanosis or clubbing Objective Data Vital Signs Vital Signs: Vital Signs - 24 hr 03/12/23 13:53 03/12/23 14:01 03/12/23 13:58 Temperature 97.7
[2023-03-13 11:34] LABS: Glucose Point of Care 203 mg/dl (65-105)
[2023-03-13] MEDS: PANTOPRAZOLE 40 MG TABLET PO (12:11)
--- NOTE | 2023-03-13 16:33 | PM.DS ---
DS: Admitting Diagnosis Discharge Date 03/13/2023 Admitting Diagnosis Chest pain DS: Discharge Diagnosis Discharge Diagnosis (1) Chest pain: Qualifiers: Chest pain type: unspecified Qualified Code(s): R07.9 - Chest pain, unspecified Code(s): R07.9 - Chest pain, unspecified Status: Acute Assessment and Plan: . (2) Tobacco dependence: Code(s): F17.200 - Nicotine dependence, unspecified, uncomplicated Status: Acute (3) T2DM (type 2 diabetes mellitus): Code(s): E11.9 - Type 2 diabetes mellitus without complications Status: Acute (4) Hypertension: Code(s): I10 - Essential (primary) hypertension Status: Acute DS: Summary Hospital Course Hospital Course: 52-year-old male presented for chest pain.? Associated shortness of breath with diaphoresis.? Received aspirin 324 mg p.o. x1 with nitro.? Pain improved with nitro.? Initially STEMI alerted.? EKG was reviewed by Cardiology and STEMI alert was aborted.? History of cardiac ablation in the past.? CTA mediastinal and upper abdominal lymphadenopathy could be reactive other etiology such as lymphoma and metastatic disease consider.? No aortic aneurysm or dissection.? Focal left lower lobe pleural thickening with adjacent parenchymal scarring.? EKG with early repolarization.? No dynamic changes on repeat EKGs.? Troponin serial negative.? Lipase mildly elevated at 102.? BNP normal.? Cardiology consulted.? No further cardiac workup recommended.? Echo done and was reviewed. Left ventricular hypertrophy with hyperdynamic systolic function and grade 2 diastolic noncompliance noted with no valvular abnormality. Hypertensive on admission.? Stopped nitroglycerin patch.? 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 Stress test has been discontinued as after discussion with the patient.? Add H2 krystal at discharge. Abdominal lymphadenopathy: Could be reactive need follow-up CT as an outpatient basis to ensure resolution. Follow-up with PCP with regard to this Hypertension on lisinopril and hydrochlorothiazide Diabetes on metformin at home Time Spent with Patient Time attestation: Total time spent providing and/or coordinating discharge services: 35 minutes Exam Narrative: GENERAL: The patient is well developed, not in acute distress HEENT: Nonicteric sclerae, PERRLA, EOMI. Oropharynx clear. Moist mucous membranes. Conjunctivae appear well perfused. CHEST: Chest wall is nontender. HEART: Regular rate and rhythm without murmur, rubs, or gallops LUNGS: Clear to auscultation bilaterally. no respiratory distress ABDOMEN: Soft, positive bowel sounds, non-tender, no organomegaly. SKIN: No rash, no excessive bruising, petechiae, or purpura. NEUROLOGIC: Cranial nerves II-XII intact, alert and oriented x 3, no gross motor deficits EXTREMITIES: no edema, cyanosis or clubbing DS: Data Data Completed and Pending Completed studies during hospitalization: Exam Type: ? ? CA echo doppler color flow Study Info Indications ?? ? - htn Complete two-dimensional, color flow and Doppler transthoracic echocardiogram is performed. Account #: ? ? [id number] Summary ? 1. Complete two-dimensional, color flow and Doppler transthoracic echocardiogram is performed. ? 2. Left ventricular hypertrophy with hyperdynamic systolic function and grade 2 diastolic noncompliance. ? 3. No valvular abnormality. Left Ventricle ? Left ventricular chamber dimension is normal. ? Left ventricular systolic function is hyperdynamic, estimated at >70%. ? There is mild concentric increased left ventricular wall thickness. ? The left ventricular diastolic function is grade II diastolic dysfunction. Right Ventricle ? Right ventricular chamber dimension is normal. Left Atria ? Left atrial chamber dimension is normal. Right Atria ? Right atrial chamber dimension is normal. Aortic Valve ? The aortic valve is normal. Pulmonic Krissy
== END 2023-03-13 17:03 | disposition home or self-care (01) ==
LOC: ANHED 15:21 → ANHIMU 21:50
PROVIDERS: Internal Medicine; Internal Medicine Cardiovascular Disease; Admitting Provider General Practice; Emergency Provider General Practice; PCP Family Medicine; Visit Provider Internal Medicine
DX: R07.9 Chest pain, unspecified (principal); I10 Essential (primary) hypertension; E11.9 Type 2 diabetes mellitus without complications; R59.0 Localized enlarged lymph nodes; J93.9 Pneumothorax, unspecified; R00.0 Tachycardia, unspecified; F17.210 Nicotine dependence, cigarettes, uncomplicated; Z20.822 Contact with and (suspected) exposure to COVID-19; Z82.49 Family history of ischemic heart disease and other diseases of the circulatory system; Z79.84 Long term (current) use of oral hypoglycemic drugs; Z79.899 Other long term (current) drug therapy
CPT/HCPCS: 36415; 71275; 74175; 80053; 82948; 84484; 85025; 93005; 93306; 96372; 96374; 96376; 99285; A9270; G0378; J1650; J2270; Q9967

== ENCOUNTER 2023-07-07 03:18 | Emergency (ER) | payer BC, SELFPAY ==
[2023-07-07 03:24] VITALS: BP 184/92; PULSE 110; RESP 20; TEMP 36.1; O2SAT 100
--- NOTE | 2023-07-07 03:27 | ED.GENADULT ---
HPI - General Adult General Chief complaint: Neck Pain/Injury Stated complaint: neck pain Time Seen by Provider: 07/07/23 03:19 History of Present Illness HPI narrative: This is a 52-year-old male presenting with 1 day of neck pain. Patient says he has developed a tightness and pain in the upper part of his neck. It has gotten progressively worse. It is an achy pain that makes it very difficult to turn his head. He has never had pain like this in the past. patient took an aleive prior to arrival. . Patient denies any fevers chills, trauma, neurologic deficits, CP, REID, Abd pain, n/v/d. Related Data Allergies Allergy/AdvReac Type Severity Reaction Status Date / Time Penicillins Allergy Severe Hives Verified 04/02/23 07:31 [facility] Past Medical History Medical History Heat cramp, initial encounter Hypertension Muscle cramps Surgical History Surgical History H/O cardiac radiofrequency ablation H/O foot surgery Large bowel obstruction had surgical decompression Social History Social History Smoking status: Light tobacco smoker Tobacco type: cigarettes Alcohol intake: never Substance use: never Lack of Transportation: No Lack of Food: Never True Current Housing: I Have Housing Concerned About Future Housing: No Difficulty Paying Gas/Electric Bills: No Difficulty Paying for Meds: No Currently Unemployed: No Education: High School Diploma/GED Difficulty w/ Childcare or Family Care: No Living arrangements: with family Spiritual care concerns: No Exam Narrative: APPEARANCE: Patient is sitting and talking without moving his neck side to side. His neck is slightly flexed. Head: atraumatic. EYES: EOMI, NOSE: Atraumatic NECK: Tense paracervical muscles. Limited range of motion due to pain. No overlying skin changes. RESPIRATORY: No increased rate of breathing CARDIOVASCULAR: RRR, ABDOMINAL: Non-distended MUSCULOSKELETAl: No obvious deformities NEURO: Alert. Cranial nerves 2-12 grossly intact. Sensation light touch, motor function cerebellar function intact for 4 extremities. Gait exam was normal. SKIN:: Warm, dry. Normal color PSYCHIATRIC: Normal affect Course Vital Signs Vital signs: Vital Signs Temperature 96.9 F L 07/07/23 03:24 Pulse Rate 110 H 07/07/23 03:24 Respiratory Rate 20 07/07/23 03:24 Blood Pressure 184/92 H 07/07/23 03:24 Pulse Oximetry 100 07/07/23 03:24 Oxygen Delivery Room Air 07/07/23 03:24 Temperature 96.9 F L 07/07/23 03:24 Pulse Rate 110 H 07/07/23 03:24 Respiratory Rate 20 07/07/23 03:24 Blood Pressure 184/92 H 07/07/23 03:24 Pulse Oximetry 100 07/07/23 03:24 Oxygen Delivery Room Air 07/07/23 03:24 Medical Decision Making MDM Narrative Medical decision making narrative: -Course: 52 year old male presenting with neck pain. History and physical consistent with neck spasm. Patient treated with Valium Tylenol Toradol and lidocaine patch. Patient improved. Patient discharged. 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
[2023-07-07] MEDS: ACETAMINOPHEN 500 MG TABLET 1000 MG PO (03:33)
[2023-07-07] MEDS: KETOROLAC 30 MG/ML VIAL (*BKC) IM (03:34)
[2023-07-07] MEDS: diazePAM INJ (*CRX) 10 MG/2 ML SYRINGE IM (03:36)
[2023-07-07] MEDS: LIDOCAINE 5% PATCH 1 PATCH TRANSDERM (03:37)
[2023-07-07 04:23] VITALS: BP 156/98; PULSE 85; RESP 18; O2SAT 97
== END 2023-07-07 04:23 | disposition home or self-care (01) ==
PROVIDERS: Emergency Provider Emergency Medicine; PCP Family Medicine
DX: M54.2 Cervicalgia (principal); F17.210 Nicotine dependence, cigarettes, uncomplicated
CPT/HCPCS: 96372; 99284; A9270; J1885; J3360

== ENCOUNTER 2024-04-16 01:59 | Emergency (ER) | payer BC, SELFPAY ==
[2024-04-16 02:01] VITALS: BP 176/121; PULSE 114; RESP 20; TEMP 36; O2SAT 97
--- NOTE | 2024-04-16 02:10 | ED.SKABFB ---
HPI - Skin/Abscess/Foreign Bdy General Chief complaint: Skin/Abscess/Foreign Body Stated complaint: skin issue Time Seen by Provider: 04/16/24 02:06 Source: patient Mode of arrival: ambulatory Limitations: no limitations History of Present Illness HPI narrative: patient is a 53-year-old male with infection under the right armpit. He does not get these regularly and he started to get this over the past few days and it is causing lots of pain and discomfort. He is borderline diabetic. complaint: rash and abscess/boil Onset (ago): day(s) (3) Tetanus up to date: unsure Location: RUE ( [place]) Severity: moderate Severity scale (1-10): 6 Quality: burning and sharp Pain Consistency: constant Relieving factors: none Exacerbating factors: palpation Context: other ( patient has a right armpit abscess /boil of the sebaceous gland) Associated symptoms: denies other symptoms Treatments prior to arrival: none Related Data Allergies Allergy/AdvReac Type Severity Reaction Status Date / Time Penicillins Allergy Severe Hives Verified 04/02/23 07:31 Review of Systems Review of Systems: All systems reviewed & are unremarkable except as noted in HPI and below Constitutional: Constitutional: Reports no additional constitutional complaints Eyes: Eyes: Reports no additional eye complaints ENT: Reports system reviewed and no additional complaints, except as documented Cardiovascular: Cardiovascular: Reports no additional cardiovascular complaints Respiratory: Respiratory: Reports no additional respiratory complaints Gastrointestinal: Gastrointestinal: Reports no additional gastrointestinal complaints Genitourinary: Genitourinary: Reports no additional male genitourinary complaints Musculoskeletal: Musculoskeletal: Reports no additional musculoskeletal complaints Integumentary/Breasts: Skin/Breast: Reports system reviewed and no additional complaints, except as docu Neurologic: Reports system reviewed and no additional complaints, except as documented Psychiatric: Psychiatric: Reports no additional psychiatric complaints Endocrine: Endocrine: Reports no additional endocrine complaints Hematologic/Lymphatic: Hematologic/Lymphatic: Reports no additional hematologic/lymphatic complaints Allergic/Immunologic: Allergic/Immunologic: Reports no additional allergic/immunologic complaints PMFSH Past Medical History Medical History Hypertension Heat cramp, initial encounter Muscle cramps Surgical History Surgical History Large bowel obstruction had surgical decompression H/O cardiac radiofrequency ablation H/O foot surgery Social History Social History Smoking status: Light tobacco smoker Tobacco type: cigarettes Alcohol intake: never Substance use: never Lack of Transportation: No Lack of Food: Never True Current Housing: I Have Housing Concerned About Future Housing: No Difficulty Paying Gas/Electric Bills: No Difficulty Paying for Meds: No Currently Unemployed: No Education: High School Diploma/GED Difficulty w/ Childcare or Family Care: No Living arrangements: with family Spiritual care concerns: No Exam Const: General: healthy appearing Nutritional Appearance: well nourished Orientation/consciousness: patient oriented x3 Limitations: no limitations HENMT: Head: normal to inspection Ears: external ears normal Face/Nose/Sinus: Normal external nose present Eyes: Conjunctivae: conjunctivae normal Pupils: Equal, round and reactive pupils present EOM: EOMs intact bilaterally Neck: Neck: normal visual inspection Chest: Chest palpation & inspection: normal inspection of the chest Resp: Effort & Inspection: normal respiratory effort and not labored Auscultation: clear to auscultation bilaterally and no crackles Cardio: Rate: regular rate Rhythm: regular rhythm Heart sounds: no murmurs GI: Inspection: non-distended GI Palp: Yes Soft to palpation and No Tenderness to palpation present (GI) Auscultation: normal bowel sounds : General: Yes bladder normal to palpation Back/Spine/Pelvis: Back: no CVA tenderness Skin: General skin exam: normal color Rashes: rash noted Wounds: no wounds Other: right armpit has a elongated red swollen gland with tenderness to palpation and a nidus; these do not typically have much pus if drained so we will just use antibiotics at this time Neuro: General: patient oriented x3 Cranial nerves: Yes Nystagmus not present Speech: normal speech Gait exam (Neuro): Normal gait present Extrem: General: normal to inspection Psych: Mental Status: mental status grossly normal Affect: normal affect Attitude: cooperative Course Vital Signs Vital signs: Vital Signs Temperature 36.0 C L 04/16/24 02:01 Pulse Rate 114 H 04/16/24 02:01 Respiratory Rate 20 04/16/24 02:01 Blood Pressure 176/121 H 04/16/24 02:01 Pulse Oximetry 97 04/16/24 02:01 Oxygen Delivery Room Air 04/16/24 02:01 Temperature 36.0 C L 04/16/24 02:01 Pulse Rate 114 H 04/16/24 02:01 Respiratory Rate 20 04/16/24 02:01 Blood Pressure 176/121 H 04/16/24 02:01 Pulse Oximetry 97 04/16/24 02:01 Oxygen Delivery Room Air 04/16/24 02:01 MDM - Skin/Abscess/Foreign Bdy MDM Narrative Medical decision making narrative: patient is a 53-year-old male with a right armpit enlarged and swollen sebaceous gland. We will go ahead and do antibiotics at this time. Also something for pain. Discharge Plan Discharge Clinical Impression: Abscess of axilla, right Patient Disposition: Home, Self-Care Condition: Stable Instructions: Antibiotic Form, Abscess (ED) Patient Language: Portuguese Prescriptions: New clindamycin HCl 300 mg capsule 300 mg PO TID 7 Days Qty: 21 0RF hydrocodone-acetaminophen 5-325 mg tablet 1 tablet PO Q8H PRN (Reason: pain) Qty: 10 0RF Rx Instructions: 1-2 tabs per dose No Action ibuprofen 800 mg tablet 800 mg PO TID PRN (Reason: pain) 7 Days Qty: 21 0RF acetaminophen 500 mg tablet 1,000 mg PO TID PRN (Reason: daysi) 7 Days Qty: 42 0RF methocarbamol 750 mg tablet 1,500 mg PO TID Qty: 42 0RF lisinopril-hydrochlorothiazide 20-25 mg tablet 1 tablet PO DAILY Qty: 90 3RF tamsulosin [Flomax] 0.4 mg capsule 0.4 mg PO DAILY Qty: 90 0RF Follow-up/Referrals: Chester Sanchez DO [Primary Care Provider] - Time of Disposition: :25
[2024-04-16] MEDS: CLINDAMYCIN HCL 150 MG CAP 300 MG PO (02:24)
[2024-04-16] MEDS: HYDROcodone/acetaminophen (*CRX) 10-325 MG TABLET 1 TAB PO (02:27)
[2024-04-16 02:48] VITALS: BP 169/102; PULSE 98; RESP 18; O2SAT 97
== END 2024-04-16 02:48 | disposition home or self-care (01) ==
PROVIDERS: Emergency Provider Emergency Medicine; PCP Family Medicine
DX: L02.411 Cutaneous abscess of right axilla (principal); F17.210 Nicotine dependence, cigarettes, uncomplicated
CPT/HCPCS: 99283; A9270

== ENCOUNTER 2024-06-12 21:57 | Observation (INO) | payer BC, SELFPAY ==
[2024-06-12] VITALS (16 sets, daily range): BP systolic 155–186; BP diastolic 93–114; PULSE 104–113; RESP 17–32; TEMP 36.9; O2SAT 84–100
--- NOTE | 2024-06-12 21:59 | ED.URI ---
HPI - URI/Sore Throat General Chief Complaint: Upper Respiratory Infection Stated Complaint: upper respiraotry Time Seen by Provider: 06/12/24 21:57 Source: patient Mode of arrival: ambulatory Limitations: no limitations History of Present Illness HPI Narrative: Patient is a 53-year-old male with exposure to influenza here for similar symptoms of cough and congestion with shortness of breath. He was having difficulty breathing upon entry. MD elicited complaint: cough, rhinorrhea and nasal congestion Pertinent past history: other ( Hypertension, tobacco abuse) Onset (ago): day(s) ( 1) Consistency: constant Severity: moderate Pain scale (0-10): 1 Description of mucous: clear Able to tolerate fluids by mouth: Yes Exacerbating factors: exertion, speaking and deep breaths Relieving factors: nothing Context: sick contacts and other(s) with similar symptoms Associated symptoms: fever, chills, myalgias, diaphoresis, headache, rhinorrhea, nasal congestion, cough, shortness of breath and nausea Treatments prior to arrival: none Related Data Allergies Allergy/AdvReac Type Severity Reaction Status Date / Time Penicillins Allergy Severe Hives Verified 04/16/24 03:07 Review of Systems Review of Systems: All systems reviewed & are unremarkable except as noted in HPI and below Constitutional: Constitutional: Reports no additional constitutional complaints Eyes: Eyes: Reports no additional eye complaints ENT: Reports system reviewed and no additional complaints, except as documented Cardiovascular: Cardiovascular: Reports no additional cardiovascular complaints Respiratory: Respiratory: Reports no additional respiratory complaints Gastrointestinal: Gastrointestinal: Reports no additional gastrointestinal complaints Genitourinary: Genitourinary: Reports no additional male genitourinary complaints Musculoskeletal: Musculoskeletal: Reports no additional musculoskeletal complaints Integumentary/Breasts: Skin/Breast: Reports system reviewed and no additional complaints, except as docu Neurologic: Reports system reviewed and no additional complaints, except as documented Psychiatric: Psychiatric: Reports no additional psychiatric complaints Endocrine: Endocrine: Reports no additional endocrine complaints Hematologic/Lymphatic: Hematologic/Lymphatic: Reports no additional hematologic/lymphatic complaints Allergic/Immunologic: Allergic/Immunologic: Reports no additional allergic/immunologic complaints PMFSH Past Medical History Medical History Hypertension Heat cramp, initial encounter Muscle cramps Surgical History Surgical History Large bowel obstruction had surgical decompression H/O cardiac radiofrequency ablation H/O foot surgery Social History Social History Smoking status: Light tobacco smoker Tobacco type: cigarettes Alcohol intake: never Substance use: never Lack of Transportation: No Lack of Food: Never True Current Housing: I Have Housing Concerned About Future Housing: No Difficulty Paying Gas/Electric Bills: No Difficulty Paying for Meds: No Currently Unemployed: No Education: High School Diploma/GED Difficulty w/ Childcare or Family Care: No Living arrangements: with family Spiritual care concerns: No Exam Const: General: diaphoretic and ill appearing Nutritional Appearance: well nourished Orientation/consciousness: patient oriented x3 Limitations: no limitations HENMT: Head: normal to inspection Ears: external ears normal Face/Nose/Sinus: Normal external nose present Eyes: Conjunctivae: conjunctivae normal Pupils: Equal, round and reactive pupils present EOM: EOMs intact bilaterally Neck: Neck: normal visual inspection Chest: Chest palpation & inspection: normal inspection of the chest Resp: Effort & Inspection: abnormal respiratory effort, labored, no retractions, tachypneic and no use of accessory muscles Auscultation: not clear to auscultation bilaterally, no crackles, no rales, rhonchi, no wheezes, breath sounds present and diminished lung sounds Cardio: Rate: regular rate Rhythm: regular rhythm Heart sounds: no murmurs GI: Inspection: non-distended GI Palp: Yes Soft to palpation, No Tenderness to palpation present (GI) and No Guarding due to palpation present (GI) Auscultation: normal bowel sounds : General: Yes bladder normal to palpation Back/Spine/Pelvis: Back: no CVA tenderness Skin: General skin exam: normal color Rashes: no rashes Wounds: no wounds Neuro: General: patient oriented x3 Cranial nerves: Yes Nystagmus not present Speech: normal speech Extrem: General: normal to inspection Psych: Mental Status: mental status grossly normal Affect: normal affect Attitude: cooperative Course Vital Signs Vital signs: Vital Signs Pulse Oximetry 95 06/12/24 21:57 Oxygen Delivery Non-Rebreather Mask 06/12/24 21:57 Oxygen Flow Rate 15 06/12/24 21:57 Temperature 36.9 C 06/12/24 22:17 Pulse Rate 109 H 06/13/24 00:37 Respiratory Rate 22 H 06/12/24 23:01 Blood Pressure 175/110 H 06/12/24 23:49 Pulse Oximetry 96 06/13/24 00:37 Oxygen Delivery Nasal Cannula 06/12/24 23:49 Oxygen Flow Rate 2 06/12/24 23:49 MDM - URI/Sore Throat MDM Narrative Medical decision making narrative: patient is a 53-year-old male with respiratory difficulties here for further evaluation and influenza exposure. We will do a complete workup at this time to include COVID panel swab. Lab Data Attestation: I reviewed the patient's lab results. 06/12/24 22:11 06/12/24 22:11 Labs: Lab Results 06/12/24 06/12/24 Range/Units 21:58 22:11 WBC 5.4 (4.8-10.8) K/mm3 RBC 5.07 (4.70-6.10) M/mm3 Hgb 14.3 (14.0-18.0) g/dL Hct 45.3 (40.0-54.0) % MCV 89.3 (78.0-102.0) fL MCH 28.2 (27.0-31.0) pg MCHC 31.6 L (32-36) g/dL RDW 13.7 (11.6-14.4) % Plt Count 284 (150-420) K/mm3 MPV 9.5 (8.7-11.0) fl Immature Gran % (Auto) 0.4 H (0.0-0.0) % Neut % (Auto) 70.6 H (50.0-70.0) % Lymph % (Auto) 15.9 L (18.0-42.0) % Teller % (Auto) 10.5 (2.0-11.0) % Eos % (Auto) 2.0 (1.0-6.0) % Baso % (Auto) 0.6 (0.0-1.0) % Lymph # (Auto) 0.86 L (1.10-4.50) K/mm3 Teller # (Auto) 0.57 (0.10-0.90) K/mm3 Eos # (Auto) 0.11 (0.02-0.50) K/mm3 Baso # (Auto) 0.03 (0.00-0.10) K/mm3 Abs Immat Gran (auto) 0.02 H (0.00-0.00) K/mm3 Absolute Neuts (auto) 3.82 (1.70-7.20) K/mm3 Absolute Nucleated RBC 0.00 (0.00-0.00) K/mm3 Nucleated RBC % 0.0 (0-0.0) % D-Dimer 0.59 H* (0.19-0.50) mg/L Sodium 137 (136-145) mmol/L Potassium 4.5 (3.5-5.1) mmol/L Chloride 99 (98-108) mmol/L Carbon Dioxide 30 (21-32) mmol/L Anion Gap 8 (4-12) mmol/L BUN 13 (7-18) mg/dL Creatinine 1.13 (0.70-1.30) mg/dL Estim Creat Clear Calc 96 ml/min Estimated GFR > 60 (59 - ) Glucose 156 H (70-99) mg/dL Calculated Osmolality 287 (285-295) mOsm/kg Lactic Acid 1.8 (0.4-2.0) mmol/L Calcium 8.8 (8.5-10.1) mg/dL Total Bilirubin 0.3 (0.00-1.00) mg/dL AST 40 H (15-37) U/L ALT 47 (16-63) U/L Alkaline Phosphatase 88 (46-116) U/L Troponin I 13.5 (0.00-60.4) ng/L NT-Pro-B Natriuret Pep 263 H (0-125) pg/mL Total Protein 7.9 (6.4-8.2) g/dL Albumin 3.3 L (3.4-5.0) g/dL Influenza A (RT-PCR) Positive A (Negative) Influenza B (RT-PCR) Negative (Negative) RSV (RT-PCR) Negative (Negative) SARS-CoV-2 RNA (RT-PCR) Negative (Negative) Imaging Data Attestation: I personally reviewed and interpreted this imaging study as follows: Radiologist's impression: CTA for PE of the chest was negative for PE and otherwise negative for acute process; chronic changes noted chest x-rays negative for acute process (See CTA) ECG Data EKG #1: Attestation: I personally reviewed and interpreted this ECG as follows: ECG completion date: 06/13/24 ECG completion time: 00:47 EKG Interpretation: tachycardia, sinus rhythm, no ectopy, non-specific ST changes, normal QRS, normal QT and NL axis Discharge Plan Discharge Clinical Impression: Influenza A, Hypoxia, SIRS (systemic inflammatory response syndrome) Patient Disposition: Acute Care [facility] Condition: Stable Patient Language: Mohawk Prescriptions: No Action ibuprofen 800 mg tablet 800 mg PO TID PRN (Reason: pain) 7 Days Qty: 21 0RF acetaminophen 500 mg tablet 1,000 mg PO TID PRN (Reason: daysi) 7 Days Qty: 42 0RF clindamycin HCl 300 mg capsule 300 mg PO TID 7 Days Qty: 21 0RF hydrocodone-acetaminophen 5-325 mg tablet 1 tablet PO Q8H PRN (Reason: pain) Qty: 10 0RF Rx Instructions: 1-2 tabs per dose lisinopril-hydrochlorothiazide 20-25 mg tablet 1 tablet PO DAILY Qty: 90 3RF Follow-up/Referrals: Chester Sanchez DO [Primary Care Provider] - Time of Disposition: 00:58
[2024-06-12] MEDS: IPRATROPIUM 0.5 MG/ALBUTEROL SULFATE 2.5 MG AMPUL.NEB 3 ML INHALATION (22:10)
[2024-06-12] MEDS: methylPREDNISolone SOD SUCC 125 MG VIAL IV PUSH (22:25)
[2024-06-12 22:37] LABS: SARS-CoV-2 RNA PCR Negative (Negative)
[2024-06-12 22:39] LABS: Basophils Absolute Auto 0.03 K/mm3 (0.00-0.10); Basophils Percent Auto 0.6 % (0.0-1.0); Eosinophils Absolute Auto 0.11 K/mm3 (0.02-0.50); Hematocrit 45.3 % (40.0-54.0); Hemoglobin 14.3 g/dL (14.0-18.0); Immature Granulocyte Absolute 0.02 K/mm3 (0.00-0.00); Immature Granulocyte Percent A 0.4 % (0.0-0.0); Lymphocytes Absolute Auto 0.86 K/mm3 (1.10-4.50); Lymphocytes Percent Auto 15.9 % (18.0-42.0); Mean Corpuscular HGB Conc 31.6 g/dL (32-36); Mean Corpuscular Hemoglobin 28.2 pg (27.0-31.0); Mean Corpuscular Volume 89.3 fL (78.0-102.0); Mean Platelet Volume 9.5 fl (8.7-11.0); Monocytes Absolute Auto 0.57 K/mm3 (0.10-0.90); Monocytes Percent Auto 10.5 % (2.0-11.0); Neutrophils Absolute Auto 3.82 K/mm3 (1.70-7.20); Neutrophils Percent Auto 70.6 % (50.0-70.0); Platelet Count Result 284 K/mm3 (150-420); Red Blood Count 5.07 M/mm3 (4.70-6.10); Red Cell Distribution Width 13.7 % (11.6-14.4); White Blood Count 5.4 K/mm3 (4.8-10.8)
[2024-06-12 22:43] LABS: Influenza A QL RT-PCR Positive (Negative); Influenza B QL RT-PCR Negative (Negative); RSV RNA, RT-PCR Negative (Negative)
[2024-06-12 22:48] LABS: Alanine Aminotransferase 47 U/L (16-63); Albumin Level 3.3 g/dL (3.4-5.0); Alkaline Phosphatase 88 U/L (46-116); Anion Gap 8 mmol/L (4-12); Aspartate Amino Transferase 40 U/L (15-37); Bilirubin,Total 0.3 mg/dL (0.00-1.00); Blood Urea Nitrogen 13 mg/dL (7-18); Calcium 8.8 mg/dL (8.5-10.1); Carbon Dioxide 30 mmol/L (21-32); Chloride 99 mmol/L (98-108); Estimated CRCL calculation 96 ml/min; Estimated Glomerular Filt Rate > 60; Glucose 156 mg/dL (70-99); Osmolality Calculated 287 mOsm/kg (285-295); Potassium 4.5 mmol/L (3.5-5.1); Sodium 137 mmol/L (136-145); Total Protein 7.9 g/dL (6.4-8.2)
[2024-06-12 22:53] LABS: Lactic Acid Reflex 1.8 mmol/L (0.4-2.0)
[2024-06-12 22:57] LABS: NT Pro B Type Natriuretic Pept 263 pg/mL (0-125); Troponin I 13.5 ng/L (0.00-60.4)
[2024-06-12 22:59] LABS: D Dimer 0.59 mg/L (0.19-0.50)
[2024-06-13] VITALS (18 sets, daily range): BP systolic 146–191; BP diastolic 84–106; PULSE 98–115; RESP 16–31; TEMP 36.6–36.7; O2SAT 92–98; BMI 41.1
[2024-06-13] MEDS: OSELTAMIVIR PHOSPHATE 75 MG CAPSULE PO ×2 (00:17→09:18)
[2024-06-13] MEDS: cloNIDine HCL 0.1 MG TABLET PO (01:07)
[2024-06-13] MEDS: SODIUM CHLORIDE 0.9% IV 1,000 ML 100 ML IV CONT (01:56)
[2024-06-13] MEDS: ONDANSETRON INJ 4 MG/2 ML VIAL IV PUSH (01:58)
[2024-06-13] MEDS: HYDROcodone/acetaminophen (*CRX) 5-325 MG TABLET 1 TAB PO (01:58)
--- NOTE | 2024-06-13 02:10 | ADMGEN ---
This patient, Aj Patino, was admitted to 2nd Floor Room 204-2. Patient/family oriented to hospital policies and general routines including ID bracelet, bed and alarms, visiting hours, pain management, procedures, bathroom and other care routines, personal items, smoking policy, room service/diet, and visiting hours. Information on how to activate the Rapid Response Team has been discussed. Patient/Family are encouraged to report perceived risks to care and to ask questions if they do not understand what they are told or what they should do.
[2024-06-13] MEDS: IPRATROPIUM 0.5 MG/ALBUTEROL SULFATE 2.5 MG AMPUL.NEB 3 ML INHALATION (05:38)
[2024-06-13] MEDS: methylPREDNISolone SOD SUCC 40 MG VIAL 80 MG IV PUSH (06:00)
[2024-06-13 06:02] LABS: Alanine Aminotransferase 46 U/L (16-63); Albumin Level 2.9 g/dL (3.4-5.0); Alkaline Phosphatase 78 U/L (46-116); Anion Gap 4 mmol/L (4-12); Aspartate Amino Transferase 41 U/L (15-37); Bilirubin,Total 0.3 mg/dL (0.00-1.00); Blood Urea Nitrogen 14 mg/dL (7-18); Calcium 8.4 mg/dL (8.5-10.1); Carbon Dioxide 33 mmol/L (21-32); Chloride 99 mmol/L (98-108); Estimated CRCL calculation 85 ml/min; Estimated Glomerular Filt Rate 59; Glucose 232 mg/dL (70-99); Osmolality Calculated 289 mOsm/kg (285-295); Potassium 4.6 mmol/L (3.5-5.1); Sodium 136 mmol/L (136-145); Total Protein 7.8 g/dL (6.4-8.2)
[2024-06-13] MEDS: ENOXAPARIN 40 MG/0.4 ML SYRINGE SUB-Q (09:17)
[2024-06-13] MEDS: lisinopriL 20 MG TABLET PO (09:18)
[2024-06-13] MEDS: hydroCHLOROthiazide 25 MG TABLET PO (09:18)
--- NOTE | 2024-06-13 11:18 | PM.SD2 ---
Same Day Admit/Disch: HPI History of Present Illness Chief complaint: acute respiratory failure with hypoxia secondary Narrative: Aj Patino is a 53 year old male Who presented to the emergency department with worsening shortness of breath and productive cough that began about 12 hours prior to arrival to the emergency department. Patient states symptoms began early that morning and worsened throughout the day which included shortness a breath, productive, chills and some diaphoresis he came to the emergency department after felt he could not catch his breath does report sick with influenza at home as well. patient's only past medical history includes hypertension and ablation. in the emergency department patient was initially hypoxic and placed on 2 L nasal cannula which he responded well to. Patient was given dose of IV steroids and started on Tamiflu. Patient was admitted to the medical unit for further evaluation treatment overnight for acute respiratory failure with hypoxia secondary to influenza. [facility] Past Medical History Medical History Hypertension Heat cramp, initial encounter Muscle cramps Surgical History Surgical History Large bowel obstruction had surgical decompression H/O cardiac radiofrequency ablation H/O foot surgery Social History Social History Smoking packs per day: 0.25 Smoking cigarettes per day: 5.0 Years smoked: 36 Smoking pack-years: 9.00 Smoking status: Current every day smoker Tobacco type: cigarettes Second hand tobacco smoke exposure: No Alcohol intake: never Substance use: never Do You Feel Safe in your Home?: Yes Lack of Transportation: YES Lack of Food: Never True Current Housing: I Have Housing Concerned About Future Housing: No Difficulty Paying Gas/Electric Bills: No Difficulty Paying for Meds: No Currently Unemployed: No Education: High School Diploma/GED Difficulty w/ Childcare or Family Care: No Living arrangements: with family Spiritual care concerns: No Same Day Admit/Disch: Med Pre-admit Medications Home Medications ?Medication ?Instructions ?Recorded ?Confirmed ?Type lisinopril 20 1 tablet PO DAILY #90 tabs 04/02/23 06/13/24 Rx mg-hydrochlorothiazide 25 mg tablet acetaminophen 500 mg tablet 1,000 mg (2 x 500 mg) PO TID PRN 07/07/23 06/13/24 Rx daysi 7 days #42 tabs ibuprofen 800 mg tablet 800 mg PO TID PRN pain 7 days #21 07/07/23 06/13/24 Rx tabs oseltamivir 75 mg capsule (Tamiflu) 75 mg PO Q12HR #8 caps 06/13/24 Rx Review of Systems Review of Systems All systems reviewed & are unremarkable except as noted in HPI and below Exam Const: General: comfortable and no acute distress Neck: Neck: supple and no JVD Resp: Effort & Inspection: normal respiratory effort Auscultation: clear to auscultation bilaterally Cardio: Rate: regular rate Rhythm: regular rhythm GI: GI Palp: Yes Soft to palpation Auscultation: normal bowel sounds Skin: General skin exam: normal color Neuro: General: gait normal Speech: normal speech Extrem: General: normal to inspection Psych: Mental Status: mental status grossly normal DS: Data Data Completed and Pending Labs on day of discharge: Labs from last 24 hours 06/13/24 06/12/24 06/12/24 05:36 22:11 21:58 WBC 5.4 RBC 5.07 Hgb 14.3 Hct 45.3 MCV 89.3 MCH 28.2 MCHC 31.6 L RDW 13.7 Plt Count 284 MPV 9.5 Immature Gran % (Auto) 0.4 H Neut % (Auto) 70.6 H Lymph % (Auto) 15.9 L Menard % (Auto) 10.5 Eos % (Auto) 2.0 Baso % (Auto) 0.6 Lymph # (Auto) 0.86 L Menard # (Auto) 0.57 Eos # (Auto) 0.11 Baso # (Auto) 0.03 Abs Immat Gran (auto) 0.02 H Absolute Neuts (auto) 3.82 Absolute Nucleated RBC 0.00 Nucleated RBC % 0.0 D-Dimer 0.59 H* Sodium 136 137 Potassium 4.6 4.5 Chloride 99 99 Carbon Dioxide 33 H 30 Anion Gap 4 8 BUN 14 13 Creatinine 1.28 1.13 Estim Creat Clear Calc 85 96 Estimated GFR 59 > 60 Glucose 232 H 156 H Calculated Osmolality 289 287 Lactic Acid 1.8 Calcium 8.4 L 8.8 Total Bilirubin 0.3 0.3 AST 41 H 40 H ALT 46 47 Alkaline Phosphatase 78 88 Troponin I 13.5 NT-Pro-B Natriuret Pep 263 H Total Protein 7.8 7.9 Albumin 2.9 L 3.3 L Influenza A (RT-PCR) Positive A Influenza B (RT-PCR) Negative RSV (RT-PCR) Negative SARS-CoV-2 RNA (RT-PCR) Negative Imaging Radiologist's impression: linical Indication: Shortness of breath CT Scan of the Chest with Contrast: Technique: Contiguous sections were acquired throughout the chest after intravenous administration of 100 cc of Omnipaque 350. Dose reduction technique was used on this scan by utilizing automated exposure control and iterative reconstruction technique. The dose-length product (DLP) was 951.99 mGy-cm. COMPARISON: 03/12/2023 Findings: There is mild mediastinal lymphadenopathy probably at the superior mediastinum and right paratracheal stripe, extending to the precarinal region. There are mildly enlarged subcarinal lymph nodes. There are coarsely calcified right hilar lymph nodes. There is no filling defect in the pulmonary arterial tree to suggest pulmonary embolus. There is no evidence of aortic dissection or aneurysm. There is no evidence of pleural or pericardial effusion. There is mild scarring at the left lower lobe. Calcified right lower lobe granuloma present. No suspicious pulmonary nodule seen. Images through the upper abdomen reveal no abnormalities. Impression: No evidence of pulmonary embolus, aortic dissection, or aortic aneurysm. Mild mediastinal lymphadenopathy, as noted above, nonspecific. No significant pulmonary abnormality. DS: Summary Hospital Course Reason for hospitalization: acute respiratory failure with hypoxia secondary to influenza Hospital Course: Aj Patino is a 53 year old male Who presented to the emergency department with worsening shortness of breath and productive cough that began about 12 hours prior to arrival to the emergency department. Patient states symptoms began early that morning and worsened throughout the day which included shortness a breath, productive, chills and some diaphoresis he came to the emergency department after felt he could not catch his breath does report sick with influenza at home as well. patient's only past medical history includes hypertension and ablation. in the emergency department patient was initially hypoxic and placed on 2 L nasal cannula which he responded well to. Patient was given dose of IV steroids and started on Tamiflu. Patient was admitted to the medical unit for further evaluation treatment overnight for acute respiratory failure with hypoxia secondary to influenza. patient continues admission overnight receiving duo nebulizers and oxygen weaned as tolerated he did have an elevated D-dimer and CTA was performed that showed no pulmonary emboli and no significant pulmonary abnormality. Following morning patient denied any further chest pain mild shortness a breath and cough had improved he had been weaned to room air with an oxygen saturation of 96%. patient was then discharged home with prescription of Tamiflu x4 days to complete therapy encouraged supportive care with acetaminophen for pain aches and fevers and to stay hydrated he was encouraged and educated on smoking sensation as well. patient acknowledged and agreed with discharge plan. Time spent discussing smoking cessation with patient: 3 to 10 minutes Status at Discharge Functional status at discharge: independent ambulation Overall status at discharge: patient is back to baseline Time Spent with Patient Time attestation: Total time spent providing and/or coordinating discharge services: Time spent: Greater than 30 minutes DS: Admitting Diagnosis Discharge Date 06/13/2024 Admitting Diagnosis acute respiratory failure with hypoxia secondary to influenza DS: Discharge Diagnosis Discharge Diagnosis (1) Acute respiratory failure with hypoxia: Code(s): J96.01 - Acute respiratory failure with hypoxia Status: Acute (2) Hypertension: Code(s): I10 - Essential (primary) hypertension Status: Acute (3) Influenza A: Code(s): J10.1 - Influenza due to other identified influenza virus with other respiratory manifestations Status: Acute (4) SIRS (systemic inflammatory response syndrome): Code(s): R65.10 - Systemic inflammatory response syndrome (SIRS) of non-infectious origin without acute organ dysfunction Status: Acute (5) Tobacco dependence: Code(s): F17.200 - Nicotine dependence, unspecified, uncomplicated Status: Acute Plan Disposition: discharged to home Discharge Plan Discharge Attending physician on discharge: Sudhir Ivey Consulting providers: Tiny Perry Discharging Clinician: Tiny Perry Anticipated Discharge Date/Time: 06/13/24 11:14 Patient Disposition: Home, Self-Care Activity: may shower and as tolerated Diet: as tolerated and heart healthy Discharge Instructions: Influenza: supportive care I have prescribed Tamiflu please complete as indicated even if feeling better acetaminophen for aches pains fevers encourage hydration How can you care for yourself at home? ? Keep track of any new symptoms or changes in your symptoms. ? Rest until you feel better. ? Be safe with medicines. Take your medicines exactly as prescribed. Call your doctor if you think you are having a problem with your medicine. ? Do not drive after taking a prescription pain medicine. ? Ensure to follow-up with primary care physician as indicated and provide updated medication list provided to you at discharge. When should you call for help? Call 911 anytime you think you may need emergency care. For example, call if: ? You passed out (lost consciousness). Call your doctor now or seek immediate medical care if: ? You have new symptoms like fever, difficulty breathing, Chest pain, vomiting, or rash. ? You have new or different pain. ? You are confused and are having trouble thinking clearly. ? Your symptoms are getting worse. Watch closely for changes in your health, and be sure to contact your doctor if: ? You do not get better as expected. Patient Instructions: Antibiotic Form, Influenza (DC) Patient Language: Iranian Stand Alone Forms: General Discharge Information, Work/School Release IP Follow-up/Referrals: Chester Sanchez, [Primary Care Provider] - 4 Weeks Discharge Medications: New oseltamivir [Tamiflu] 75 mg Capsule 75 mg PO Q12HR Qty: 8 0RF Continued ibuprofen 800 mg tablet 800 mg PO TID PRN (Reason: pain) 7 Days Qty: 21 0RF acetaminophen 500 mg tablet 1,000 mg PO TID PRN (Reason: daysi) 7 Days Qty: 42 0RF lisinopril-hydrochlorothiazide 20-25 mg tablet 1 tablet PO DAILY Qty: 90 3RF Date of admission: 06/13/24 01:00 Primary Care Provider: Chester Sanchez Admitting Provider: Sudhir Ivey Attending physician on admission: Sudhir Ivey Condition: Stable Quality -Patient's previous records reviewed on admission -ER notes reviewed in detail on admission -discussed all findings and current treatment plan with patient/Family/POA -Consultations reviewed for recommendations -Patient's disposition for safe discharge discussed with wrapper caser Dictation performed by [employer] direct speech recognition software, therefore reagent tender variants and typographical errors may occur. Hospitalist MIPS Advance Care Plan I have confirmed that the patient's Advanced Care Plan is present, code status is documented, or surrogate decision maker is listed in patient medical record.: Yes Medication Reconciliation I have utilized all available resources to obtain, update and review the patients current medications (includes all prescriptions, OTC, herbals, cannabis, and nutritional supplements).: Yes The patient is not eligible for med reconciliation; the patient is in a emergent medical situation where delaying treatment would jeopardize the patients health.: No Heart Failure (Exclusion) Patient has history of Heart Transplant or Left Ventricular Assistive Device?: No IF YES, STOP HERE Heart Failure (Qualifier) Patient has current or prior documentation of LVEF less than or equal to 40%, or mod/servere depressed LVSF?: No IF NO, STOP HERE
--- NOTE | 2024-06-13 12:40 | PC.NURSE ---
Patient discharging home. IV site removed, tip intact. Dressing applied to site. All belongings gathered together and sent home with patient. All discharge instructions and education reviewed with patient, patients states understanding. No questions at time of discharge. Patient left floor ambulatory, accompanied by this nurse, left via private vehicle with friend.
--- NOTE | 2024-06-15 11:22 | PC.NURSE ---
Discharge call back, unable to complete, calls are restricted, will not go through.
== END 2024-06-13 12:40 | disposition home or self-care (01) ==
LOC: CHSED 06-13 00:58 → CHS2ND 06-13 07:19
PROVIDERS: Admitting Provider Internal Medicine; Emergency Provider Emergency Medicine; PCP Family Medicine; Visit Provider Internal Medicine
DX: J96.01 Acute respiratory failure with hypoxia (principal); J10.1 Influenza due to other identified influenza virus with other respiratory manifestations; F17.210 Nicotine dependence, cigarettes, uncomplicated; I10 Essential (primary) hypertension; Z20.822 Contact with and (suspected) exposure to COVID-19; Z88.0 Allergy status to penicillin; Z79.899 Other long term (current) drug therapy; Z98.890 Other specified postprocedural states
CPT/HCPCS: 36415; 71045; 71275; 80053; 83605; 83880; 84484; 85025; 85380; 87040; 87637; 93005; 94640; 96361; 96372; 96374; 96375; 96376; 99285; A9270; G0378; J1650; J2405; J2919; J7030; Q9967

== ENCOUNTER 2024-06-30 17:18 | Emergency (ER) | payer BC, SELFPAY ==
[2024-06-30 17:19] VITALS: BP 154/92; PULSE 109; RESP 20; TEMP 36.6; O2SAT 100
--- OUTSIDE RECORDS SUMMARY | 2024-06-30 17:20 | XMS_ITS | Clinical Summary ---
Author Organization [facility] Address [address] [place] [id number] Care Team Providers Care Mail Weigher Name Role Phone Chester Sanchez DO Primary Care Provider [phone] Allergies Active Allergy Reactions Criticality Noted Date Comments Penicillins Unknown 04/30/2024 Medications lisinopril-hydro CHLOROthiazide (ZESTORETIC) 10-12.5 MG tablet Take 1 tablet by mouth daily. Active Encounters Date Type Department Care Team Description 04/30/2024 3:46 AM ROOM MAID - 04/30/2024 5:53 AM [facility] Emergency [place] [facility] [place] [address] Abdullahi Davison DO Mouth/Lip Problem Discharge Disposition: Home or Self Care (Routine Discharge) 04/30/2024 Travel from Last 3 Months Family History Relation Status Comments Father Mother Social History Tobacco Use Types Packs/Day Years Used Date Smoking Tobacco: Every Day Cigarettes Smokeless Tobacco: Never Tobacco Cessation:Ready to Q uit: Not Asked; Counseling Given: Not Answered Alcohol Use Standard Drinks/Week Comments Not Currently 0 (1 standard drink = 0.6 oz pur e alcohol) Sex and Gender Information Value Date Recorded Sex Assigned at Male 04/30/2024 4:30 AM ROOM MAID Legal Sex Male 3:34 AM ROOM MAID Gender Identity Not on file Sexual Orientation Not on file Last Filed Vital Signs Vital Sign Reading Time Taken Comments Blood Pressure 154/117 04/30/2024 3:50 AM ROOM MAID Pulse 109 04/30/2024 3:50 AM ROOM MAID Temperature 36.1 C (96.9 F) 04/30/2024 3:50 AM ROOM MAID Respiratory Rate 16 04/30/2024 3:50 AM ROOM MAID Oxygen Saturation 95% 04/30/2024 3:50 AM ROOM MAID Inhaled Oxygen Concentration - - Weight 127 kg (280 lb) 04/30/2024 3:50 AM ROOM MAID Height 182.9 cm (6') 04/30/2024 3:50 AM ROOM MAID Body Mass Index 37.97 04/30/2024 3:50 AM ROOM MAID Plan of Treatment Health Maintenance Due Date Last Done Comments Colorectal Cancer Screening Colonoscopy (10 Years) 1969 Annual Physical 1972 Pneumococcal Vaccine: Pediat rics (0 to 5 Years) and At-Risk Patients (6 to 64 Years) (1 of 2 - PCV) 09/11/1975 Hepatitis C 09/11/1987 DTaP, Tdap and Td Vaccines ( 1 - Tdap) 1988 Hepatitis B Vaccines (1 of 3 - 19+ 3-dose series) 1988 Zoster Vaccines (1 of 2) 09/11/2019 COVID-19 Vaccine (2023-2 5 season) 2023 Influenza Adult (#1) 2024 Meningococcal B Vaccine Aged Out No l onger eligible based on patient's age to complete this topic Meningococcal Vaccine Aged Out No zunilda chapo eligible based on patient's age to complete this topic RSV Immunizations Under 20 Months Aged Out No longer eligible based on patient's age to complete this topic Procedures Procedure Name Priority Date/Time Associated Diagnosis Comments LACTIC ACID W REFLEX (SEPSIS) STAT 04/30/2024 5:00 AM ROOM MAID COMPREHENSIVE METABOLIC PANEL STAT 04/30/2024 5:00 AM ROOM MAID CBC W/DIFF AUTOMATED STAT 04/30/2024 5:00 AM ROOM MAID from Last 3 Months Results * LACTIC ACID W REFLEX (SEPSIS) (04/30/2024 5:00 AM ROOM MAID) LACTIC ACID VENOUS 0.9 0.4 - 2.0 MMOL/L 04/30/2024 5:35 AM ROOM MAID [facility] 04/30/2024 5:00 AM ROOM MAID us Abdullahi Davison DO LABORATORY Final Result [facility] [address] [place] [address], * (ABNORMAL) COMPREHENSIVE METABOLIC PANEL (04/30/2024 5:00 AM ROOM MAID) SODIUM S/P/B 137 136 - 145 MMOL/L 04/30/2024 5:32 AM [facility] POTASSIUM S/P/B 4.4 3.5 - 5.1 MMOL/L 04/30/2024 5:32 AM [facility] Comment:MILD HEMOLYSIS, RESU LT MAY BE AFFECTED. CHLORIDE S/P/B 101 98 - 107 MMOL/L 04/30/2024 5:32 AM [facility] CO2 30.3 21.0 - 32.0 MMOL/L 04/30/2024 5:32 AM [facility] GLUCOSE 110(H) 70 - 99 MG/DL 04/30/2024 5:32 AM [facility] Comment: FASTING GLUCOSE 100 TO 125 MG/DL IS CONSISTENT WITH IMPAIRED FASTING GLUCOSE. FASTING GLUCOSE >125 MG/DL IS CONSISTENT WITH DIABETES. RANDOM GLUCOSE >200 MG/DL WITH HYPERGLYCEMIC SYMPTOMS IS CONSISTENT WITH DIABETES. PER ADA GUIDELINES BUN 15 6 - 24 MG/DL 04/30/2024 5:32 AM [facility] CREATININE S/P/B 1.02 0.70 - 1.30 MG/DL 04/30/2024 5:32 AM [facility] CALCIUM S/P/B 8.4 8.4 - 10.5 MG/DL 04/30/2024 5:32 AM [facility] BILIRUBIN TOTAL S/P/B 0.4 0.2 - 1.0 MG/DL 04/30/2024 5:32 AM [facility] Comment: THIS ASSAY IS NOT RECOMMENDED FOR PATIENTS UNDERGOING TREATMENT WITH ELTROMBOPAG DUE TO THE POTENTIAL FOR FALSELY ELEVATED RESULTS. ALKALINE PHOSPHATASE S/P/B 71 45 - 115 U/L 04/30/2024 5:32 AM [facility] AST 73(H) 15 - 37 U/L 04/30/2024 5:32 AM ROOM MAID [facility] Comment:MILD HEMOLYSIS, RESU LT MAY BE AFFECTED. ALT 66(H) 16 - 63 U/L 04/30/2024 5:32 AM ROOM MAID [facility] TOTAL PROTEIN S/P/B 7.7 6.4 - 8.2 G/DL 04/30/2024 5:32 AM [facility] ALBUMIN S/P/B 3.2(L) 3.4 - 5.0 G/DL 04/30/2024 5:32 AM ROOM MAID [facility] ANION GAP 5.7 5.0 - 15.0 MMOL/L 04/30/2024 5:32 AM [facility] OSMOLALITY (CALC) 285 MOSM/KG 025 5:32 AM [facility] Comment:REFERENCE RANGE NOT ESTABLISHED GFR ESTIMATE 87(L) >89 ML/MIN/1. 73 M2 04/30/2024 5:32 AM [facility] GFR NOTES GFR REFERENCE S: 04/30/2024 5:32 AM [facility] Comment: THE ESTIMATED GFR IS CALCULATED USING THE 2020 CKD-EPI EQUATION. THE FOLLOWING CATEGORIES FOR GRADING RENAL FUNCTION ARE RECOMMENDED BY THE INTERNATIONAL SOCIETY OF NEPHROLOGY (KDIGO 2012 CLINICAL PRACTICE GUIDELINE). G1,NORMAL OR HIGH: >89 ml/min/1.73 m2 G2,MILDLY DECREASED: 60-89 ml/min/1.73 m2 G3A,MILDLY TO MODERATELY DECREASED: 45-59 ml/min/1.73 m2 G3B,MODERATELY TO SEVERELY DECREASED: 30-44 ml/min/1.73 m2 G4,SEVERELY DECREASED: 15-29 ml/min/1.73 m2 G5,KIDNEY FAILURE: <15 ml/min/1.73 m2 04/30/2024 5:00 AM ROOM MAID us Abdullahi Davison DO LABORATORY Final Result [facility] [address] [place] [address], * (ABNORMAL) CBC W/DIFF AUTOMATED (04/30/2024 5:00 AM ROOM MAID) WBC 6.64 4.00 - 10.80 x10'3/uL 04/30/2024 5:13 AM [facility] RBC 4.83 4.50 - 6.10 x10'6/uL 04/30/2024 5:13 AM [facility] HGB 13.8 13.0 - 18.0 G/DL 04/30/2024 5:13 AM [facility] HCT 43.1 37.0 - 52.0 % 04/30/2024 5:13 AM [facility] MCV 89.2 78.0 - 100.0 FL 04/30/2024 5:13 AM [facility] MCH 28.6 27.0 - 31.0 PG 04/30/2024 5:13 AM [facility] MCHC 32.0(L) 33.0 - 36.0 G/DL 04/30/2024 5:13 AM [facility] RDW 14.0 11.5 - 14.5 % 04/30/2024 5:13 AM [facility] PLT 259 150 - 350 x10'3/uL 04/30/2024 5:13 AM [facility] MPV 10.2 7.4 - 10.4 FL 04/30/2024 5:13 AM [facility] CBC COMMENT NORMAL REFERENCE RANGE NOT ESTABLISHED FOR THE PROPORTIONAL LEUKOCYTE DIFFERENTIAL. 04/30/2024 5:13 AM [facility] NEUTROPHILS % 60.9 % 04/30/2024 5:13 AM [facility] LYMPHOCYTES % 25.8 % 04/30/2024 5:13 AM [facility] MONOCYTES % 9.5 % 04/30/2024 5:13 AM [facility] EOSINOPHILS % 3.0 % 04/30/2024 5:13 AM [facility] BASOPHILS % 0.5 % 04/30/2024 5:13 AM [facility] IMMATURE GRANS % 0.3 % 04/30/19 5:13 AM ROOM MAID [facility] NRBC % 0.0 % 04/30/2024 5:13 AM ROOM MAID [facility] ABS. NEUTROPHILS 4.05 1.60 - 8.30 x10'3/uL 04/30/2024 5:13 AM ROOM MAID [facility] ABS. LYMPHOCYTES 1.71 0.80 - 4.70 x10'3/uL 04/30/2024 5:13 AM ROOM MAID [facility] ABS. MONOCYTES 0.63 0.00 - 1.50 x10'3/uL 04/30/2024 5:13 AM ROOM MAID [facility] ABS. EOSINOPHILS 0.20 0.00 - 0.40 x10'3/uL 04/30/2024 5:13 AM ROOM MAID [facility] ABS. BASOPHILS 0.03 0.00 - 0.20 x10'3/uL 04/30/2024 5:13 AM ROOM MAID [facility] ABS. IMMATURE GRANULOCYTES 0.02 0.00 - 0.03 x10'3/uL 04/30/2024 5:13 AM ROOM MAID [facility] ABS. NUCLEATED RBC'S 0.00 0.00 - 0.01 x10'3/uL 04/30/2024 5:13 AM ROOM MAID [facility] 04/30/2024 5:00 AM ROOM MAID Abdullahi Davison DO LABORATORY Final Result Performing Organization Address [facility]/State/[facility] Co de Phone Number [facility] [address] [place] [id number], from Last 3 Months Insurance Care Teams Mail Weigher Relationship Specialty Start Date End Date Chester Sanchez DO [address] [place] [address] PCP - General FAMILY PRACTICE 04/30/24
--- NOTE | 2024-06-30 17:39 | ED.SKABFB ---
HPI - Skin/Abscess/Foreign Bdy General Chief complaint: Skin/Abscess/Foreign Body Stated complaint: bump on left arm Time Seen by Provider: 06/30/24 17:28 Source: patient Mode of arrival: ambulatory History of Present Illness HPI narrative: This is a 53-year-old male who presents with a skin lesion on the left forearm that is been there approximately 1 month has a central scabbed area that he had blood earlier today causing it to bleed and was concerned and presented to the emergency department. Currently there is no bleeding there is no discharge S pain level is currently at about a 3/10 with no fever chills there is some mild surrounding erythema. complaint: abscess/boil and lesion Location: LUE Severity: mild Pain Consistency: constant Relieving factors: none Related Data Allergies Allergy/AdvReac Type Severity Reaction Status Date / Time Penicillins Allergy Severe Hives Verified 04/16/24 03:07 Review of Systems Review of Systems: All systems reviewed & are unremarkable except as noted in HPI and below PMFSH Past Medical History Medical History Hypertension Heat cramp, initial encounter Muscle cramps Surgical History Surgical History Large bowel obstruction had surgical decompression H/O cardiac radiofrequency ablation H/O foot surgery Social History Social History Smoking packs per day: 0.25 Smoking cigarettes per day: 5.0 Years smoked: 36 Smoking pack-years: 9.00 Smoking status: Current every day smoker Tobacco type: cigarettes Second hand tobacco smoke exposure: No Alcohol intake: never Substance use: never Do You Feel Safe in your Home?: Yes Lack of Transportation: YES Lack of Food: Never True Current Housing: I Have Housing Concerned About Future Housing: No Difficulty Paying Gas/Electric Bills: No Difficulty Paying for Meds: No Currently Unemployed: No Education: High School Diploma/GED Difficulty w/ Childcare or Family Care: No Living arrangements: with family Spiritual care concerns: No Exam Const: General: healthy appearing and no acute distress Nutritional Appearance: obese Orientation/consciousness: patient oriented x3 Neck: Neck: normal visual inspection Chest: Chest palpation & inspection: normal inspection of the chest Resp: Effort & Inspection: normal respiratory effort Auscultation: clear to auscultation bilaterally Cardio: Rate: regular rate Rhythm: regular rhythm GI: Auscultation: normal bowel sounds Skin: Wounds: wounds noted Other: Lesion on his left forearm with a central scab. Course Course Emergency Course: Patient with a skin lesion on his left forearm with a central scab with erosion in the center, patient was prepped with Betadine to the surrounding area and 11 blade was used to andrey the skin and there was no drainage or discharge. Triple antibiotic ointment was administered. This is concerning for squamous cell cancer and advised patient to follow-up with his primary care physician for referral to Dermatology. Will start an antibiotic that will sent to his local pharmacy. Vital Signs Vital signs: Vital Signs Temperature 36.6 C 06/30/24 17:19 Pulse Rate 109 H 06/30/24 17:19 Respiratory Rate 06/30/24 17:19 Blood Pressure 154/92 H 06/30/24 17:19 Pulse Oximetry 100 06/30/24 17:19 Oxygen Delivery Room Air 06/30/24 17:19 Temperature 36.6 C 06/30/24 17:19 Pulse Rate 109 H 06/30/24 17:19 Respiratory Rate 06/30/24 17:19 Blood Pressure 154/92 H 06/30/24 17:19 Pulse Oximetry 100 06/30/24 17:19 Oxygen Delivery Room Air 06/30/24 17:19 Critical Care Time Critical Care Time Critical Care Time: No Discharge Plan Discharge Clinical Impression: Skin lesion Cellulitis Qualifiers: Site of cellulitis: extremity Site of cellulitis of extremity: upper extremity Laterality: left Qualified Code(s): L03.114 - Cellulitis of left upper limb Patient Disposition: Home, Self-Care Condition: Stable Instructions: Antibiotic Form, Cellulitis (ED), Abscess (ED) Additional Instructions: advised patient take antibiotics as prescribed but most importantly advised patient to follow-up with primary care physician within the next 3 to 4 days for referral to Dermatology to have this skin lesion evaluated. Patient Language: Kinyarwanda Prescriptions: New clindamycin HCl 300 mg capsule 300 mg PO Q6H 10 Days Qty: 40 0RF No Action ibuprofen 800 mg tablet 800 mg PO TID PRN (Reason: pain) 7 Days Qty: 21 0RF acetaminophen 500 mg tablet 1,000 mg PO TID PRN (Reason: daysi) 7 Days Qty: 42 0RF oseltamivir [Tamiflu] 75 mg Capsule 75 mg PO Q12HR Qty: 8 0RF lisinopril-hydrochlorothiazide 20-25 mg tablet 1 tablet PO DAILY Qty: 90 3RF Follow-up/Referrals: Chester Sanchez DO [Primary Care Provider] - Time of Disposition: 17:46
[2024-06-30] MEDS: NEOMYCIN/POLYMYXIN/BACITRACIN OINTMENT PACKET 1 PACKET TOPICAL (17:44)
--- OUTSIDE RECORDS SUMMARY | 2024-06-30 17:48 | XMS_ITS | Clinical Summary ---
Author Organization [facility] Address [address] [place] [address] Care Team Providers Care Laundry Presser Name Role Phone Chester Sanchez DO Primary Care Provider [phone] Allergies Active Allergy Reactions Criticality Noted Date Comments Penicillins Unknown 04/30/2024 Medications lisinopril-hydro CHLOROthiazide (ZESTORETIC) 10-12.5 MG tablet Take 1 tablet by mouth daily. Active Encounters Date Type Department Care Team Description 04/30/2024 3:46 AM MANAGER FIELD SERVICE - 04/30/2024 5:53 AM [facility] Emergency [place] [facility] [place] [address] Abdullahi Davison DO Mouth/Lip Problem Discharge Disposition: [...] Sex Assigned at Male 04/30/2024 4:30 AM MANAGER FIELD SERVICE Legal Sex Male 3:34 AM MANAGER FIELD SERVICE Gender Identity Not on file Sexual Orientation Not on file Last Filed Vital Signs Vital Sign Reading Time Taken Comments Blood Pressure 154/117 04/30/2024 3:50 AM MANAGER FIELD SERVICE Pulse 109 04/30/2024 3:50 AM MANAGER FIELD SERVICE Temperature 36.1 C (96.9 F) 04/30/2024 3:50 AM MANAGER FIELD SERVICE Respiratory Rate 16 04/30/2024 3:50 AM MANAGER FIELD SERVICE Oxygen Saturation 95% 04/30/2024 3:50 AM MANAGER FIELD SERVICE Inhaled Oxygen Concentration - - Weight 127 kg (280 lb) 04/30/2024 3:50 AM MANAGER FIELD SERVICE Height 182.9 cm (6') 04/30/2024 3:50 AM MANAGER FIELD SERVICE Body Mass Index 37.97 04/30/2024 3:50 AM MANAGER FIELD SERVICE Plan of Treatment Health Maintenance Due Date [...] W REFLEX (SEPSIS) STAT 04/30/2024 5:00 AM MANAGER FIELD SERVICE COMPREHENSIVE METABOLIC PANEL STAT 04/30/2024 5:00 AM MANAGER FIELD SERVICE CBC W/DIFF AUTOMATED STAT 04/30/2024 5:00 AM MANAGER FIELD SERVICE from Last 3 Months Results * LACTIC ACID W REFLEX (SEPSIS) (04/30/2024 5:00 AM MANAGER FIELD SERVICE) LACTIC ACID VENOUS 0.9 0.4 - 2.0 MMOL/L 04/30/2024 5:35 AM MANAGER FIELD SERVICE [facility] 04/30/2024 5:00 AM MANAGER FIELD SERVICE us Abdullahi Davison DO LABORATORY Final Result [facility] [address] [place] [address], * (ABNORMAL) COMPREHENSIVE METABOLIC PANEL (04/30/2024 5:00 AM MANAGER FIELD SERVICE) SODIUM S/P/B 137 136 - 145 MMOL/L 04/30/2024 5:32 AM [facility] POTASSIUM S/P/B 4.4 3.5 - 5.1 MMOL/L 04/30/2024 5:32 AM [facility] Comment:MILD HEMOLYSIS, RESU LT MAY BE AFFECTED. CHLORIDE S/P/B 101 98 - 107 MMOL/L 04/30/2024 5:32 AM [facility] CO2 30.3 21.0 - 32.0 MMOL/L 04/30/2024 5:32 AM [facility] GLUCOSE 110(H) 70 - 99 MG/DL 04/30/2024 5:32 AM [facility] Comment: FASTING GLUCOSE 100 TO 125 MG/DL IS CONSISTENT WITH IMPAIRED FASTING GLUCOSE. FASTING GLUCOSE >125 MG/DL IS CONSISTENT WITH DIABETES. RANDOM GLUCOSE >200 MG/DL WITH HYPERGLYCEMIC SYMPTOMS IS CONSISTENT WITH DIABETES. PER ADA GUIDELINES BUN 15 6 - 24 MG/DL 04/30/2024 5:32 AM [facility] CREATININE S/P/B 1.02 0.70 - 1.30 MG/DL 04/30/2024 5:32 AM [facility] CALCIUM S/P/B 8.4 8.4 - 10.5 MG/DL 04/30/2024 5:32 AM [facility] BILIRUBIN TOTAL S/P/B 0.4 0.2 - 1.0 MG/DL 04/30/2024 5:32 AM [facility] Comment: THIS ASSAY IS NOT RECOMMENDED FOR PATIENTS UNDERGOING TREATMENT WITH ELTROMBOPAG DUE TO THE POTENTIAL FOR FALSELY ELEVATED RESULTS. ALKALINE PHOSPHATASE S/P/B 71 45 - 115 U/L 04/30/2024 5:32 AM [facility] AST 73(H) 15 - 37 U/L 04/30/2024 5:32 AM MANAGER FIELD SERVICE [facility] Comment:MILD HEMOLYSIS, RESU LT MAY BE AFFECTED. ALT 66(H) 16 - 63 U/L 04/30/2024 5:32 AM MANAGER FIELD SERVICE [facility] TOTAL PROTEIN S/P/B 7.7 6.4 - 8.2 G/DL 04/30/2024 5:32 AM [facility] ALBUMIN S/P/B 3.2(L) 3.4 - 5.0 G/DL 04/30/2024 5:32 AM MANAGER FIELD SERVICE [facility] ANION GAP 5.7 5.0 - 15.0 MMOL/L 04/30/2024 5:32 AM [facility] OSMOLALITY (CALC) 285 MOSM/KG 025 5:32 AM [facility] Comment:REFERENCE RANGE NOT ESTABLISHED GFR ESTIMATE 87(L) >89 ML/MIN/1. 73 M2 04/30/2024 5:32 AM [facility] GFR NOTES GFR REFERENCE S: 04/30/2024 5:32 AM [facility] Comment: THE ESTIMATED GFR IS CALCULATED [...] FAILURE: <15 ml/min/1.73 m2 04/30/2024 5:00 AM MANAGER FIELD SERVICE us Abdullahi Davison DO LABORATORY Final Result [facility] [address] [place] [address], * (ABNORMAL) CBC W/DIFF AUTOMATED (04/30/2024 5:00 AM MANAGER FIELD SERVICE) WBC 6.64 4.00 - 10.80 x10'3/uL 04/30/2024 5:13 AM [facility] RBC 4.83 4.50 - 6.10 x10'6/uL 04/30/2024 5:13 AM [facility] HGB 13.8 13.0 - 18.0 G/DL 04/30/2024 5:13 AM [facility] HCT 43.1 37.0 - 52.0 % 04/30/2024 5:13 AM [facility] MCV 89.2 78.0 - 100.0 FL 04/30/2024 5:13 AM [facility] MCH 28.6 27.0 - 31.0 PG 04/30/2024 5:13 AM [facility] MCHC 32.0(L) 33.0 - 36.0 G/DL 04/30/2024 5:13 AM [facility] RDW 14.0 11.5 - 14.5 % 04/30/2024 5:13 AM [facility] PLT 259 150 - 350 x10'3/uL 04/30/2024 5:13 AM [facility] MPV 10.2 7.4 - 10.4 FL 04/30/2024 5:13 AM [facility] CBC COMMENT NORMAL REFERENCE RANGE NOT ESTABLISHED FOR THE PROPORTIONAL LEUKOCYTE DIFFERENTIAL. 04/30/2024 5:13 AM [facility] NEUTROPHILS % 60.9 % 04/30/2024 5:13 AM [facility] LYMPHOCYTES % 25.8 % 04/30/2024 5:13 AM [facility] MONOCYTES % 9.5 % 04/30/2024 5:13 AM [facility] EOSINOPHILS % 3.0 % 04/30/2024 5:13 AM [facility] BASOPHILS % 0.5 % 04/30/2024 5:13 AM [facility] IMMATURE GRANS % 0.3 % 04/30/19 5:13 AM MANAGER FIELD SERVICE [facility] NRBC % 0.0 % 04/30/2024 5:13 AM MANAGER FIELD SERVICE [facility] ABS. NEUTROPHILS 4.05 1.60 - 8.30 x10'3/uL 04/30/2024 5:13 AM MANAGER FIELD SERVICE [facility] ABS. LYMPHOCYTES 1.71 0.80 - 4.70 x10'3/uL 04/30/2024 5:13 AM MANAGER FIELD SERVICE [facility] ABS. MONOCYTES 0.63 0.00 - 1.50 x10'3/uL 04/30/2024 5:13 AM MANAGER FIELD SERVICE [facility] ABS. EOSINOPHILS 0.20 0.00 - 0.40 x10'3/uL 04/30/2024 5:13 AM MANAGER FIELD SERVICE [facility] ABS. BASOPHILS 0.03 0.00 - 0.20 x10'3/uL 04/30/2024 5:13 AM MANAGER FIELD SERVICE [facility] ABS. IMMATURE GRANULOCYTES 0.02 0.00 - 0.03 x10'3/uL 04/30/2024 5:13 AM MANAGER FIELD SERVICE [facility] ABS. NUCLEATED RBC'S 0.00 0.00 - 0.01 x10'3/uL 04/30/2024 5:13 AM MANAGER FIELD SERVICE [facility] 04/30/2024 5:00 AM MANAGER FIELD SERVICE Abdullahi Davison DO LABORATORY Final Result Performing Organization Address [facility]/State/[facility] Co de Phone Number [facility] [address] [place] [id number], from Last 3 Months Insurance Care Teams Laundry Presser Relationship Specialty Start Date End Date Chester Sanchez DO [address] [place] [address] PCP - General FAMILY PRACTICE 04/30/24
--- NOTE | 2024-07-01 13:16 | PC.NURSE ---
preliminary wound culture , abscess, mixed ninoska awaiting final
--- NOTE | 2024-07-05 12:30 | PC.NURSE ---
PRELIMINARY ANAEROBIC CULTURE RESULTS: ORGANISM 1 PREVOTELLA SPECIES, ORGANISM 2 PEPTOSTREPTOCOCCUS SPECIES. TO AWAIT C&S.
== END 2024-06-30 17:56 | disposition home or self-care (01) ==
LOC: CHSED 17:46
PROVIDERS: Emergency Provider Emergency Medicine; PCP Family Medicine
DX: L03.114 Cellulitis of left upper limb (principal); I10 Essential (primary) hypertension; F17.210 Nicotine dependence, cigarettes, uncomplicated
CPT/HCPCS: 87075; 99283

== ENCOUNTER 2024-08-17 14:48 | Emergency (ER) | payer BC, SELFPAY ==
[2024-08-17 14:55] VITALS: BP 145/92; PULSE 100; RESP 16; TEMP 36.1; O2SAT 97
--- OUTSIDE RECORDS SUMMARY | 2024-08-17 14:57 | XMS_ITS | Clinical Summary ---
Author Organization [facility] Address [address] [place] [address] Care Team Providers Care Moveman Name Role Phone Chester Sanchez DO Primary Care Provider Allergies Active Allergy Reactions Criticality Noted Date Comments Penicillins Unknown 04/30/2024 Medications lisinopril-hydro CHLOROthiazide (ZESTORETIC) 10-12.5 MG tablet Take 1 tablet by mouth daily. Active Family History Relation Status Comments Father Mother [...] Sex Assigned at Male 04/30/2024 4:30 AM SHANK PAPERER Legal Sex Male 3:34 AM SHANK PAPERER Gender Identity Not on file Sexual Orientation Not on file Last Filed Vital Signs Vital Sign Reading Time Taken Comments Blood Pressure 154/117 04/30/2024 3:50 AM SHANK PAPERER Pulse 109 04/30/2024 3:50 AM SHANK PAPERER Temperature 36.1 C (96.9 F) 04/30/2024 3:50 AM SHANK PAPERER Respiratory Rate 16 04/30/2024 3:50 AM SHANK PAPERER Oxygen Saturation 95% 04/30/2024 3:50 AM SHANK PAPERER Inhaled Oxygen Concentration - - Weight 127 kg (280 lb) 04/30/2024 3:50 AM SHANK PAPERER Height 182.9 cm (6') 04/30/2024 3:50 AM SHANK PAPERER Body Mass Index 37.97 04/30/2024 3:50 AM SHANK PAPERER Plan of Treatment Health Maintenance Due Date Last Done Comments Colorectal Cancer Screening Colonoscopy (10 Years) 1969 Annual Physical 1972 Hepatitis C 09/11/1987 DTaP, Tdap and Td Vaccines ( 1 - Tdap) 1988 Hepatitis B Vaccines (1 of 3 - 19+ 3-dose series) 1988 Pneumococcal Vaccine: 50+ Ye ars (1 of 2 - PCV) 1988 Zoster Vaccines (1 of 2) 09/11/2019 COVID-19 Vaccine (1 - 2023-2 5 season) 2023 Meningococcal B Vaccine Aged Out No l onger eligible based on patient's age to complete this topic Meningococcal Vaccine Aged Out No zunilda chapo eligible based on patient's age to complete this topic RSV Immunizations Under 20 Months Aged Out No longer eligible based on patient's age to complete this topic Insurance [facility] Care Teams Moveman Relationship Specialty Start Date End Date Chester Sanchez DO [address] [place] [address] PCP - General FAMILY PRACTICE 04/30/24
--- NOTE | 2024-08-17 15:11 | ED.FALL ---
HPI - Fall General Chief Complaint: Fall Stated Complaint: fall; lesion to left arm Time Seen by Provider: 08/17/24 15:11 Source: patient Mode of arrival: ambulatory Limitations: no limitations History of Present Illness HPI Narrative: 53-year-old male with a history hypertension bowel obstruction status surgery years ago, status post radiofrequency ablation of the heart with left forearm skin growth measuring 4 cm presents to the ED after a fall at work. No head injury/ spine injury. No loss of consciousness. The patient complains of -- fall on the left forearm mass. no bleeding from the mass. No recent swelling. No other obvious injuries noted. MD complaint: fall Onset (ago): hour(s) ( 1 hour ago) Fall from: standing Fall witnessed: yes, by bystander Place fall occurred: work Loss of consciousness: none Prolonged down time: no Symptoms prior to fall: none Location of injury - extremities: Left: forearm Severity: moderate Quality: aching Associated symptoms (after fall): denies Related Data Allergies Allergy/AdvReac Type Severity Reaction Status Date / Time Penicillins Allergy Severe Hives Verified 08/17/24 14:55 Review of Systems Review of Systems: All systems reviewed & are unremarkable except as noted in HPI and below Constitutional: Constitutional: Reports as per HPI and Reports no additional constitutional complaints Eyes: Eyes: Reports as per HPI and Reports no additional eye complaints ENT: Reports system reviewed and no additional complaints, except as documented and Reports as per HPI Cardiovascular: Cardiovascular: Reports as per HPI and Reports no additional cardiovascular complaints Respiratory: Respiratory: Reports as per HPI, Reports no additional respiratory complaints and Reports cough Gastrointestinal: Gastrointestinal: Reports as per HPI and Reports no additional gastrointestinal complaints Genitourinary: Genitourinary: Reports no additional male genitourinary complaints and Reports as per HPI Musculoskeletal: Musculoskeletal: Reports no additional musculoskeletal complaints and Reports as per HPI Integumentary/Breasts: Comments: chronic venous stasis changes of legs. Back of left forearm has a 4 cm mesh rooming mass Neurologic: Reports system reviewed and no additional complaints, except as documented and Reports as per HPI Psychiatric: Psychiatric: Reports no additional psychiatric complaints and Reports as per HPI Endocrine: Endocrine: Reports no additional endocrine complaints and Reports as per HPI Hematologic/Lymphatic: Hematologic/Lymphatic: Reports no additional hematologic/lymphatic complaints and Reports as per HPI Allergic/Immunologic: Allergic/Immunologic: Reports no additional allergic/immunologic complaints and Reports as per HPI PMFSH Past Medical History Medical History Hypertension Heat cramp, initial encounter Muscle cramps Surgical History Surgical History Large bowel obstruction had surgical decompression H/O cardiac radiofrequency ablation H/O foot surgery Social History Social History Smoking packs per day: 0.25 Smoking cigarettes per day: 5.0 Years smoked: 36 Smoking pack-years: 9.00 Smoking status: Current every day smoker Tobacco type: cigarettes Second hand tobacco smoke exposure: No Alcohol intake: never Substance use: never Do You Feel Safe in your Home?: Yes Lack of Transportation: YES Lack of Food: Never True Current Housing: I Have Housing Concerned About Future Housing: No Difficulty Paying Gas/Electric Bills: No Difficulty Paying for Meds: No Currently Unemployed: No Education: High School Diploma/GED Difficulty w/ Childcare or Family Care: No Living arrangements: with family Spiritual care concerns: No Exam Narrative: blood pressure 145/92 Const: General: no acute distress Orientation/consciousness: patient oriented x3 Limitations: no limitations HENMT: Head: normal to inspection Ears: external ears normal Face/Nose/Sinus: Normal external nose present Face and sinus: normal facial exam Mouth: Yes Normal oral and palatal mucosa present Throat: posterior oropharynx normal Eyes: Conjunctivae: conjunctivae normal Pupils: Equal, round and reactive pupils present EOM: EOMs intact bilaterally Direct Ophthalmoscopy: no photophobia Neck: Neck: normal visual inspection, no lymphadenopathy and no meningeal signs Chest: Chest palpation & inspection: normal inspection of the chest Resp: Effort & Inspection: normal respiratory effort Auscultation: rhonchi and diminished lung sounds Cardio: Rate: regular rate Rhythm: regular rhythm GI: GI Palp: Yes Soft to palpation Auscultation: normal bowel sounds : General: Yes no CVA tenderness Back/Spine/Pelvis: Back: no CVA tenderness Skin: Other: chronic venous stasis changes both legs. Back of left forearm has a 4 cm mass which is firm on palpation. Nontender. Neuro: General: patient oriented x3, moves all extremities, no meningeal signs, no focal motor deficits and CN's II-XI intact bilaterally Cranial nerves: Yes Nystagmus not present Speech: normal speech Gait exam (Neuro): Normal gait present Extrem: General: normal to inspection and no clubbing, cyanosis or edema Psych: Mental Status: mental status grossly normal Affect: normal affect Attitude: cooperative Course Course Emergency Course: Left forearm mass-- Discussed with the surgeon Dr. Cerna regarding possible biopsy. Patient is to follow-up as an outpatient with a general surgeon. Accidental fall with no obvious injuries chronic bronchitis Vital Signs Vital signs: Vital Signs Oxygen Delivery Room Air 08/17/24 14:50 Temperature 36.1 C L 08/17/24 14:55 Pulse Rate 100 08/17/24 14:55 Respiratory Rate 16 08/17/24 14:55 Blood Pressure 145/92 H 08/17/24 14:55 Pulse Oximetry 97 08/17/24 14:55 Oxygen Delivery Room Air 08/17/24 14:55 MDM - Fall MDM Narrative Medical decision making narrative: accidental fall left forearm mass Differential Diagnosis Differential diagnosis: Likely concussion without loss of consciousness Discharge Plan Discharge Clinical Impression: Forearm mass Qualifiers: Laterality: left Qualified Code(s): R22.32 - Localized swelling, mass and lump, left upper limb Accidental fall Qualifiers: Encounter type: initial encounter Qualified Code(s): W19.XXXA - Unspecified fall, initial encounter Patient Disposition: Home Condition: Stable Instructions: Antibiotic Form, Head Injury (ED), Soft Tissue Mass (ED) Additional Instructions: schedule an appointment to see Dr. Kamara at 2:30 p.m. [facility] suit [address]. Call [phone]. Patient Language: Malagasy Prescriptions: No Action lisinopril-hydrochlorothiazide 20-25 mg tablet 1 tablet PO DAILY Qty: 90 3RF Follow-up/Referrals: Ramiro Feliz APRN [Primary Care Provider] - Time of Disposition: 16:04
--- NOTE | 2024-08-17 15:40 | PC.NURSE ---
PT IS SITTING ON STRETCHER WATCHING TV AT THIS TIME AWAITING RETURN CALL FROM SURGEON. PT DENIES ANY NEEDS OR COMPLAINTS. WILL CONTINUE TO MONITOR.
--- OUTSIDE RECORDS SUMMARY | 2024-08-17 15:47 | XMS_ITS | Clinical Summary ---
Author Organization [facility] Address [address] [place] [address] Care Team Providers Care Itinerant Teacher Assistant Name Role Phone Chester Sanchez DO Primary Care Provider [phone] Allergies Active Allergy Reactions Criticality Noted Date [...] Sex Assigned at Male 04/30/2024 4:30 AM ELECTROTYPER APPRENTICE Legal Sex Male 3:34 AM ELECTROTYPER APPRENTICE Gender Identity Not on file Sexual Orientation Not on file Last Filed Vital Signs Vital Sign Reading Time Taken Comments Blood Pressure 154/117 04/30/2024 3:50 AM ELECTROTYPER APPRENTICE Pulse 109 04/30/2024 3:50 AM ELECTROTYPER APPRENTICE Temperature 36.1 C (96.9 F) 04/30/2024 3:50 AM ELECTROTYPER APPRENTICE Respiratory Rate 16 04/30/2024 3:50 AM ELECTROTYPER APPRENTICE Oxygen Saturation 95% 04/30/2024 3:50 AM ELECTROTYPER APPRENTICE Inhaled Oxygen Concentration - - Weight 127 kg (280 lb) 04/30/2024 3:50 AM ELECTROTYPER APPRENTICE Height 182.9 cm (6') 04/30/2024 3:50 AM ELECTROTYPER APPRENTICE Body Mass Index 37.97 04/30/2024 3:50 AM ELECTROTYPER APPRENTICE Plan of Treatment Health Maintenance Due Date [...] patient's age to complete this topic Insurance [facility] Care Teams Itinerant Teacher Assistant Relationship Specialty Start Date End Date Chester Sanchez DO [address] [place] [address] PCP - General FAMILY PRACTICE 04/30/24
[2024-08-17 16:10] VITALS: BP 130/88; PULSE 90; RESP 18; TEMP 36.7; O2SAT 97
== END 2024-08-17 16:10 | disposition home or self-care (01) ==
PROVIDERS: Emergency Provider Internal Medicine Critical Care Medicine; PCP Nurse Practitioner Family
DX: R22.32 Localized swelling, mass and lump, left upper limb (principal); I10 Essential (primary) hypertension; F17.210 Nicotine dependence, cigarettes, uncomplicated; W19.XXXA Unspecified fall, initial encounter; Y99.0 Civilian activity done for income or pay
CPT/HCPCS: 99282

== ENCOUNTER 2024-08-31 00:34 | Day surgery (SDC) | payer BC, SELFPAY ==
[2024-08-30 09:08] VITALS: BMI 42.1
--- NOTE | 2024-08-30 09:14 | PC.NURSE ---
Addendum entered by Rashawn Mukherjee RN 08/30/24 09:21: Patient told to stop clear liquids at 530am. Original Note: Report to the Outpatient Waiting Room, entrance under the green pavilion located off [facility], at time _1130_ on date _[id number]_. Planned Procedure Time: _130pm_. Time changes happen often and if your time is changed the preop area will call you the afternoon before. - You and your visitor will be asked to self-screen and do not enter if you have any COVID symptoms. Please call surgeon if you need to reschedule. - A mask is optional within the hospital at this time. Patients may have clear liquids (water, carbonated beverages, clear teas, apple juice) until 3 hours prior to surgery with a maximum of 20 ounces. - No food from midnight until time of surgery and no smoking, or chewing tobacco (or any form of nicotine). No chewing gum, candy or mints. Take only the following medications with a SIP of water on the morning of surgery: __None DO NOT STOP ANY OF YOUR OTHER PRESCRIPTION MEDICATIONS PRIOR TO SURGERY EXCEPT THE FOLLOWING Hold all vitamins and supplements for 3 days per anesthesiologist. Medications to discontinue per physician Date to take last dose Please no make-up, nail nepalese, hairspray, perfume, deodorant, or body powder the day of surgery. No jewelry (including any body piercings) or valuables the day of surgery, leave them at home. Please take a shower or bath the night before, or the morning of, surgery with an antibacterial soap. Wear comfortable, loose fitting clothing. - Jewelry must be removed prior to entering the operating room. Rings and piercings that are not removed may be cut off. - The hospital will not accept responsibility for valuables. - Please leave all valuables, including medications, at home the day of surgery. If you are going home after surgery, a licensed wedding transportation driver must drive you home. - NO public transportation without another adult if you receive anesthesia. - We recommend that an adult stay with you for 24 hours following discharge. - We also recommend that you do not drive, make important decision, drink alcoholic beverages, or take any drugs that were not prescribed by your health care provider for at least 24 hours after your discharge time. Follow any additional instructions given to you from your surgeon. Telephone instructions given to __Patie___and asked if any additional questions and then verbalized understanding. Patient advised to call surgeon office or pre surgery nurse liaison [phone] if any additional questions.
[2024-08-31] VITALS (7 sets, daily range): BP systolic 107–144; BP diastolic 66–94; PULSE 79–91; RESP 14–18; TEMP 36.6–36.8; O2SAT 93–100; BMI 42.1
--- NOTE | 2024-08-31 06:58 | WPDHPUPDATE1 ---
History and Physical Update Update Date/Time: 08/31/24 06:58 Patient seen and examined in pre-operative holding area. No interval change in medical history or symptoms. Patient recalls previous discussion of benefits and alternatives to procedure. Continues to desire to proceed with left forearm lesion excision and integra placement . Reviewed procedure, post-op expectations and risks including but not limited to bleeding, infection, injury to tendon/nerve/vessel, decreased hand function, stiffness, RSD, no change or worsening of symptoms, partial/total graft loss, incomplete resection, recurrence. I discussed the possible use of assistants and their participation in the case. Patient stated understanding and signed the consent form wishing to proceed.
--- NOTE | 2024-08-31 06:59 | W.PM.PROC2 ---
Procedure Note - Detailed Date of Procedure 08/31/24 Pre-op Diagnosis left forearm mass Post-op Diagnosis Same Procedure Performed left forearm mass excsiion and integra placement Surgeon Silver Kirk MD Documentation Specialist xochitl montano pa-c Anesthesia MAC Description of Procedure INFORMED CONSENT: The patient was seen and examined and marked in the pre-op area. The patient signed the consent form. PROCEDURE IN DETAIL:The patient taken back to OR on the stretcher in supine position. Time out performed with anesthesia, surgeon and staff agreeing on patient's name site and surgery to be performed SCDs were placed on the lower extremities and inflated. A tourniquet was placed on {left} upper extremity and antibiotics given IV After anesthesia administered sedation I injected {20}cc 1%lido with epi and 0.5% marcaine plain at the operative site The {left upper extremity} was prepped and draped in sterile fashion I proceeded with making a circular incision around the protubernat, fungating mass with 1cm marginsof normal appearing skin through skin and dermis with 15 blade scalpel. Bovie cautery was used to resect the specimen off the antebrachial fascial. I proceeded with using 15 blade and bovie to further resect a small proximal, distal, radial and ulnar margin of skin and subcutaneous tissue that was sent for frozen section. The antebrachial cutaneous nerves were not identified within the resection area. The defect measured 9x10cm I irrigated with normal saline and hemostasis with bovie cautery. After frozen setion was resulted as negative for malignancy I proceeded with trimming and suturing a piece of bilayer integra onto the defect with 3-0 nylon and then 3-0 chromic sutures as primary closure was not possible given the size of the defect. I proceeded iwth creating a xeroform bolster that was sutured iinto place over the integra with the previously placed nylon sutures. A dressing of 4x4s, abd, kerlix and and an foreign bandage was applied. The hand was warm and well perfusedThe patient was then awaken from anesthesia and transferred to the recovery room in stable condition. Complications - none EBL- 3cc Disposition - home in stable conditions Xochitl Montano PA-C was essential for positioning, retraction, closure and dressing placement [facility] [place] Billing Surgery - Charge Forward: Surgery Billing ([id number](bill 3 times) same for xochitl adding modifier )
--- NOTE | 2024-08-31 12:19 | WPDANESEPPF ---
Anes - Initial Pre Proc Eval Procedure: Operation Date: 08/31/24 13:30 Proposed Procedures p Excision of Left Forearm Skin Lesion with Frozen Section Integra Placement - Silver Kirk MD Date/Time: 08/31/24 12:19 Surgeon: Silver Kirk MD Pre Op Diagnosis: left forearm mass Patient Data Age: 53 Gender: M Height: 1.83 m Weight: 140.9 kg Allergies Allergy/AdvReac Type Severity Reaction Status Date / Time Penicillins Allergy Severe Hives Verified 08/30/24 09:07 Home Medications Medication Instructions Recorded Confirmed Type lisinopril 20 1 tablet PO DAILY #90 tabs 04/02/23 08/30/24 Rx mg-hydrochlorothiazide 25 mg tablet hydrocodone 5 mg-acetaminophen 325 1 tablet PO Q6H PRN pain #12 tabs 08/31/24 Rx mg tablet Patient hx anesthesia problems: none Family hx anesthesia problems: none Results Review: All pre-operative results and documents have been reviewed as part of the pre-operative evaluation. [facility] Past Medical History Medical History Hypertension Heat cramp, initial encounter Muscle cramps Surgical History Surgical History Large bowel obstruction had surgical decompression H/O cardiac radiofrequency ablation H/O foot surgery Family History Family History Mother Melanoma Social History Social History Smoking packs per day: 0.25 Smoking cigarettes per day: 5.0 Years smoked: 36 Smoking pack-years: 9.00 Smoking status: Current every day smoker Tobacco type: cigarettes Second hand tobacco smoke exposure: No Alcohol intake: never Substance use: never Do You Feel Safe in your Home?: Yes Lack of Transportation: No Lack of Food: Never True Current Housing: I Have Housing Concerned About Future Housing: No Difficulty Paying Gas/Electric Bills: No Difficulty Paying for Meds: No Currently Unemployed: YES Education: High School Diploma/GED Difficulty w/ Childcare or Family Care: No Living arrangements: with family Spiritual care concerns: No Anes - Eval Final PreProcedure Day of Procedure 08/31/24 12:19 Patient weight: morbidly obese Heart: regular rate and rhythm Lungs: decreased breath sounds Airway: Mallampati scale class II Neurological: alert and oriented Last oral intake: >/= 8 hours ASA classification: III Emergent: no Anesthetic plan: proceed Anesthesia type and monitoring: general LMA and standard monitoring Results Review: All pre-operative results and documents have been reviewed as part of the pre-operative evaluation. Informed Consent: The patient's anesthetic plan and its attendant risks and benefits were discussed with the patient/family/POA. Questions were solicited and answers provided to the satisfaction of the patient/family/POA.
[2024-08-31] MEDS: LACTATED RINGERS 1,000 ML 30 ML IV CONT ×2 (12:43→14:30)
[2024-08-31 12:55] LABS: Anion Gap 5 mmol/L (4-12); Blood Urea Nitrogen 18 mg/dL (9-20); Calcium 8.2 mg/dL (8.4-10.2); Carbon Dioxide 29 mmol/L (22-30); Chloride 103 mmol/L (98-107); Estimated CRCL calculation 120 ml/min; Estimated Glomerular Filt Rate > 60; Glucose 126 mg/dL (65-110); Potassium 4.3 mmol/L (3.4-5.0); Sodium 137 mmol/L (137-145)
[2024-08-31] MEDS: ceFAZolin 3 GM/D5W 100 ML 100 ML IVPB (13:13)
[2024-08-31] MEDS: LIDO 1%/EPINEPHRINE 1:100,000 50 ML VIAL 20 ML INFILTRATE (14:22)
== END 2024-08-31 16:18 | disposition home or self-care (01) ==
PROVIDERS: Anesthesiology; PCP Family Medicine; Visit Provider Plastic Surgery
PROC: (CPT 11606; principal; 2024-08-31 13:30)
DX: C44.629 Squamous cell carcinoma of skin of left upper limb, including shoulder (principal); F17.210 Nicotine dependence, cigarettes, uncomplicated; E66.01 Morbid (severe) obesity due to excess calories; Z68.41 Body mass index [BMI] 40.0-44.9, adult
CPT/HCPCS: 11606; 15271; 15272 ×3; 36415; 80048; 88304; 88305; 88331; A9270; J0690; J1100; J2003; J2004; J2250; J2371; J2405; J2704; J3010; J7120

== ENCOUNTER 2024-09-18 00:07 | Emergency (ER) | payer BC, SELFPAY ==
[2024-09-18 00:12] VITALS: BP 128/114; PULSE 107; RESP 18; TEMP 36.3; O2SAT 97
[2024-09-18 00:17] VITALS: BP 138/102
--- NOTE | 2024-09-18 00:17 | ED_ITS ---
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 Subsequently patient was placed on course of antibiotics which she has completed. Today he hit his wound site following which his Integra dressing fell off. Wound is a 10 cm in diameter. Most of it was healthy granulation tissue. No bleeding noted from the wound. Patient is here for wound dressing. Relieving factors: none Exacerbating factors: none Associated symptoms: denies other symptoms Related Data Allergies Allergy/AdvReac Type Severity Reaction Status Date / Time Penicillins Allergy Severe Hives Verified 09/16/24 09:41 Review of Systems Review of Systems: All systems reviewed & are unremarkable except as noted in HPI and below PMFSH Past Medical History Medical History Hypertension Heat cramp, initial encounter Muscle cramps Surgical History Surgical History Large bowel obstruction had surgical decompression H/O cardiac radiofrequency ablation H/O foot surgery Family History Family History Mother Melanoma Social History Social History Smoking packs per day: 0.5 Smoking cigarettes per day: 10.0 Years smoked: 30 Smoking pack-years: 15.00 Smoking status: Former smoker Tobacco type: cigarettes Second hand tobacco smoke exposure: No Alcohol intake: former Alcohol use details: PAST HX OF HEAVY DRINKING Substance use: never Other substance usage details: MULTIPLE SUBSTANCE USE IN 20-30S Do You Feel Safe in your Home?: Yes Lack of Transportation: No Lack of Food: Never True Current Housing: I Have Housing Concerned About Future Housing: No Difficulty Paying Gas/Electric Bills: No Difficulty Paying for Meds: No Currently Unemployed: YES Education: High School Diploma/GED Difficulty w/ Childcare or Family Care: No Living arrangements: with family Spiritual care concerns: No Exam Narrative: Blood pressure is 138/102 with a pulse of 107. Patient is afebrile. Saturating 97% on room air. Const: General: no acute distress Nutritional Appearance: well nourished Orientation/consciousness: patient oriented x3 Limitations: no limitations HENMT: Head: normal to inspection Ears: external ears normal Face/Nose/Sinus: Normal external nose present Face and sinus: normal facial exam Mouth: Yes Normal oral and palatal mucosa present Throat: posterior oropharynx normal Eyes: Conjunctivae: conjunctivae normal Pupils: Equal, round and reactive pupils present EOM: EOMs intact bilaterally Direct Ophthalmoscopy: no photophobia Neck: Neck: normal visual inspection, no lymphadenopathy and no meningeal signs Chest: Chest palpation & inspection: normal inspection of the chest Resp: Effort & Inspection: normal respiratory effort Auscultation: diminished lung sounds Cardio: Rate: regular rate Rhythm: regular rhythm GI: GI Palp: Yes Soft to palpation Auscultation: normal bowel sounds Other: No tenderness/ rigidity / rebound. : General: Yes no CVA tenderness Back/Spine/Pelvis: Back: no CVA tenderness Skin: Other: Left forearm has a 10 cm ulcer-- status post removal of squamous cell fungating mass. Wound has healthy granulation tissue without any exudate. Neuro: General: patient oriented x3, moves all extremities, no meningeal signs and no focal motor deficits Speech: normal speech Extrem: Other: Left forearm has 10 cm cutaneous ulcer Psych: Mental Status: mental status grossly normal Affect: normal affect Attitude: cooperative Course Course Emergency Course: left forearm cutaneous ulcer/ status post removal of a fungating squamous cell carcinoma no additional injury noted after he accidentally hit on the ulcer. Vital Signs Vital signs: Vital Signs Temperature 36.3 C L 09/18/24 00:12 Pulse Rate 107 H 09/18/24 00:12 Respiratory Rate 18 09/18/24 00:12 Blood Pressure 128/114 H 09/18/24 00:12 Pulse Oximetry 97 09/18/24 00:12 Oxygen Delivery Room Air 09/18/24 00:12 Temperature 36.3 C L 09/18/24 00:12 Pulse Rate 107 H 09/18/24 00:12 Respiratory Rate 18 09/18/24 00:12 Blood Pressure 138/102 H 09/18/24 00:17 Pulse Oximetry 97 09/18/24 00:12 Oxygen Delivery Room Air 09/18/24 00:12 Medical Decision Making [facility] Narrative Medical decision making narrative: left forearm ulcer Differential Diagnosis Differential Diagnosis: traumatic ulcer Vital Signs Vital Signs: Vital Signs Temperature 36.3 C L 09/18/24 00:12 Pulse Rate 107 H 09/18/24 00:12 Respiratory Rate 18 09/18/24 00:12 Blood Pressure 128/114 H 09/18/24 00:12 Pulse Oximetry 97 09/18/24 00:12 Oxygen Delivery Room Air 09/18/24 00:12 Temperature 36.3 C L 09/18/24 00:12 Pulse Rate 107 H 09/18/24 00:12 Respiratory Rate 18 09/18/24 00:12 Blood Pressure 138/102 H 09/18/24 00:17 Pulse Oximetry 97 09/18/24 00:12 Oxygen Delivery Room Air 09/18/24 00:12 Discharge Plan Discharge Clinical Impression: Skin ulcer of forearm Qualifiers: Non-pressure ulcer stage: with fat layer exposed Qualified Code(s): L98.492 - Non-pressure chronic ulcer of skin of other sites with fat layer exposed Patient Disposition: Home Condition: Stable Instructions: Antibiotic Form Additional Instructions: follow-up with plastic surgery for wound dressing. Integra dressing is not available here Patient Language: Greek Prescriptions: No Action lisinopril-hydrochlorothiazide 20-25 mg tablet 1 tablet PO DAILY Qty: 90 3RF Follow-up/Referrals: Chester Sanchez DO [Primary Care Provider] - Time of Disposition: 00:26
== END 2024-09-18 00:37 | disposition home or self-care (01) ==
PROVIDERS: Emergency Provider Internal Medicine Critical Care Medicine; PCP Family Medicine
DX: L98.492 Non-pressure chronic ulcer of skin of other sites with fat layer exposed (principal); C44.629 Squamous cell carcinoma of skin of left upper limb, including shoulder; I10 Essential (primary) hypertension; Z87.891 Personal history of nicotine dependence
CPT/HCPCS: 99281

== ENCOUNTER 2024-09-28 02:00 | Day surgery (SDC) | payer BC, SELFPAY ==
[2024-09-16 09:42] VITALS: BMI 41.8
--- NOTE | 2024-09-16 09:50 | PC.NURSE ---
Report to the Outpatient Waiting Room, entrance under the green pavilion located off [facility], at time _0730_ on date _09/28/24_. Planned Procedure Time: 09__.? Time changes happen often and if your time is changed the preop area will call you the afternoon before. - You and your visitor will be asked to self-screen and do not enter if you have any COVID symptoms. Please call surgeon if you need to reschedule. - A mask is optional within the hospital at this time. Patients may have clear liquids (water, carbonated beverages, clear teas, apple juice) until 3 hours prior to surgery with a maximum of 20 ounces. - No food from midnight until time of surgery and no smoking, or chewing tobacco (or any form of nicotine). No chewing gum, candy or mints. - Infants may have breast milk until 4 hours before surgery, infant formula 6 hours prior to surgery. - Children will be allowed to drink immediately following surgery.? If applicable, please bring a bottle or sippy cup to assist with drinking. Juice, water, soda, and popsicles are readily available.? For infants on formula, please bring formula the day of surgery.? Pacifiers are allowed. Take only the following medications with a SIP of water on the morning of surgery: NONE DO NOT STOP ANY OF YOUR OTHER PRESCRIPTION MEDICATIONS PRIOR TO SURGERY EXCEPT THE FOLLOWING Hold all vitamins and supplements for 3 days per anesthesiologist. Medications to discontinue per physician Date to take last dose Please no make-up, nail gibraltarian, hairspray, perfume, deodorant, or body powder the day of surgery.? No jewelry (including any body piercings) or valuables the day of surgery, leave them at home.? Please take a shower or bath the night before, or the morning of, surgery with an antibacterial soap.? Wear comfortable, loose fitting clothing.? Children are encouraged to wear pajamas. - Jewelry must be removed prior to entering the operating room.? Rings and piercings that are not removed may be cut off. - The hospital will not accept responsibility for valuables.? - Please leave all valuables, including medications, at home the day of surgery. If you are going home after surgery, a licensed maintenance truck driver must drive you home.? - NO public transportation without another adult if you receive anesthesia. - We recommend that an adult stay with you for 24 hours following discharge. - We also recommend that you do not drive, make important decision, drink alcoholic beverages, or take any drugs that were not prescribed by your health care provider for at least 24 hours after your discharge time. For Pediatric surgeries, we recommend two adults accompany the child home. Follow any additional instructions given to you from your surgeon. Telephone instructions given to __PATIENT_and asked if any additional questions and then verbalized understanding. Patient advised to call surgeon office or pre surgery nurse liaison [phone] if any additional questions.
[2024-09-28] VITALS (9 sets, daily range): BP systolic 103–135; BP diastolic 71–83; PULSE 83–100; RESP 13–22; TEMP 36.4–37; O2SAT 92–100
[2024-09-28] MEDS: LACTATED RINGERS 1,000 ML 30 ML IV CONT (06:30)
--- NOTE | 2024-09-28 06:45 | WPDHPUPDATE1 ---
History and Physical Update Update Date/Time: 09/28/24 06:45 Patient seen and examined in pre-operative holding area. No interval change in medical history or symptoms. Patient recalls previous discussion of benefits and alternatives to procedure. Continues to desire to proceed with split thickness skin graft from left thigh to left forearm . Reviewed procedure, post-op expectations and risks including but not limited to bleeding, infection, injury to tendon/nerve/vessel, decreased hand function, stiffness, RSD, no change or worsening of symptoms, partial/total graft loss, donor site complications. I discussed the possible use of assistants and their participation in the case. Patient stated understanding and signed the consent form wishing to proceed.
--- NOTE | 2024-09-28 06:46 | W.PM.PROC2 ---
Procedure Note - Detailed Date of Procedure 09/28/24 Pre-op Diagnosis open wound left forearm Post-op Diagnosis Same Procedure Performed stsg left forearm Surgeon Silver Kirk MD Ballpoint Pen Cartridge Tester xochitl montano pa-c Anesthesia General Description of Procedure Patient was seen in the preoperative holding area where the left forearm and left thigh were marked and the consent form was signed. Patient was taken back to the operating room on the stretcher in the supine position. Time-out was performed with Anesthesia, surgeon, and staff agreeing on patient's name, site, and surgery to be performed. SCDs were placed on the lower extremities and inflated a tram was placed on the left upper extremity the left arm and left thigh were prepped and draped in usual sterile fashion. I proceeded with injecting 10 cc of 1% lidocaine with epinephrine 0.5% Marcaine plain and the left forearm and then the other 10 cc of the left thigh. I elevated the left upper extremity and the tourniquet was inflated to 250 mmHg. I proceeded with preparation of the recipient side on the left forearm using 15 blade scalpel for sharp debridement of the skin edges and fibrinous exudate. There was healthy bleeding tissue. This was irrigated with normal saline. The defect in the left arm measured 8 x 9 cm. This was transposed to the left thigh. Using mineral oil and a Dom dermatome I proceeded with harvesting a 3 in wide graft placed through the mesher the. This graft was then transposed onto the left forearm in appropriate orientation and secured with 2-0 nylon sutures and 4-0 chromic. The left thigh was dressed with Mastisol and Tegaderm, 4 x 4, ABDs, Kerlix and Mervin wrap. I proceeded with fashioning a Xeroform bolster for the left forearm using Xeroform, cotton balls and the previously placed nylon sutures. A dressing of 4 x 4, ABD, Kerlix and Mervin bandage was applied. The tourniquet was let down and the hand was warm well perfused. The patient was awakened from anesthesia and transferred to the recovery room in stable condition. Complications: None Estimated blood loss: 6 cc Disposition: Patient tolerated the procedure well and will go home later today Xochitl Montano PA-c was essential for positioning, graft harvest, bolster placement and dressing placement [facility] [place] Billing Surgery - Charge Forward: Surgery Billing ([id number] same for xochitl adding )
--- NOTE | 2024-09-28 07:13 | WPDANESEPPF ---
Anes - Initial Pre Proc Eval Procedure: Operation Date: 09/28/24 07:30 Proposed Procedures p Split Thickness Skin Graft From Left Thigh to Left Forearm - Silver Kirk MD Date/Time: 09/28/24 07:13 Surgeon: Silver Kirk MD Pre Op Diagnosis: Neoplasm of Left Forearm Patient Data Age: 54 Gender: M Height: 1.83 m Weight: 140 kg Allergies Allergy/AdvReac Type Severity Reaction Status Date / Time Penicillins Allergy Severe Hives Verified 09/28/24 07:10 Home Medications ?Medication ?Instructions ?Recorded ?Confirmed ?Type lisinopril 20 1 tablet PO DAILY #90 tabs 04/02/23 09/16/24 Rx mg-hydrochlorothiazide 25 mg tablet Patient hx anesthesia problems: none Family hx anesthesia problems: none Results Review: All pre-operative results and documents have been reviewed as part of the pre-operative evaluation. [facility] Past Medical History Medical History Hypertension Heat cramp, initial encounter Muscle cramps Surgical History Surgical History Large bowel obstruction had surgical decompression H/O cardiac radiofrequency ablation H/O foot surgery Family History Family History Mother Melanoma Social History Social History Smoking packs per day: 0.25 Smoking cigarettes per day: 5.0 Years smoked: 36 Smoking pack-years: 9.00 Smoking status: Former smoker Tobacco type: cigarettes Second hand tobacco smoke exposure: No Alcohol intake: former Alcohol use details: PAST HX OF HEAVY DRINKING Substance use: never Other substance usage details: MULTIPLE SUBSTANCE USE IN 20-30S Do You Feel Safe in your Home?: Yes Lack of Transportation: No Lack of Food: Never True Current Housing: I Have Housing Concerned About Future Housing: No Difficulty Paying Gas/Electric Bills: No Difficulty Paying for Meds: No Currently Unemployed: YES Education: High School Diploma/GED Difficulty w/ Childcare or Family Care: No Living arrangements: with family Spiritual care concerns: No Anes - Eval Final PreProcedure Day of Procedure 09/28/24 07:13 Patient weight: morbidly obese Heart: regular rate and rhythm Lungs: decreased breath sounds Airway: Mallampati scale class II Neurological: alert and oriented Last oral intake: >/= 8 hours ASA classification: III Emergent: no Anesthetic plan: proceed Anesthesia type and monitoring: general LMA and standard monitoring Results Review: All pre-operative results and documents have been reviewed as part of the pre-operative evaluation. Informed Consent: The patient's anesthetic plan and its attendant risks and benefits were discussed with the patient/family/POA. Questions were solicited and answers provided to the satisfaction of the patient/family/POA.
[2024-09-28] MEDS: ceFAZolin 3 GM/D5W 100 ML 100 ML IVPB (07:25)
[2024-09-28] MEDS: EPINEPHrine HCL INJ 1 MG/ML AMPUL IRRIGATION (07:50)
[2024-09-28] MEDS: LIDO 1%/EPINEPHRINE 1:100,000 20 ML VIAL INFILTRATE (07:51)
[2024-09-28] MEDS: MINERAL OIL LIGHT 30 ML BTL TOPICAL (07:52)
== END 2024-09-28 10:30 | disposition home or self-care (01) ==
PROVIDERS: PCP Family Medicine; Visit Provider Plastic Surgery
PROC: (CPT 15100; principal; 2024-09-28 07:30)
DX: Z48.1 Encounter for planned postprocedural wound closure (principal); Z85.828 Personal history of other malignant neoplasm of skin; Z87.891 Personal history of nicotine dependence; E66.01 Morbid (severe) obesity due to excess calories; Z68.41 Body mass index [BMI] 40.0-44.9, adult
CPT/HCPCS: 15100; 15002; J0171; J0690; J1100; J2003; J2004; J2250; J2405; J2704; J3010; J7120